=== PATIENT | male | born 1945 | race Caucasian/White ===

== ENCOUNTER → 2016-09-17 | Outpatient (REF) | payer MEDICARE, OTHER ==
[~2016-09-17] MED LIST: /BENA20TA; /WARF25TA; /WARF5TA; ACET65TA; ACTO45TA; ALLO300T; ATENPOW; BENA20TA2 PO; CARD2TAB; COUM10TA; DOXA1TAB71 PO; DRIS50002 PO; GLUC1000; INSULANT; LANTINJ4 SC; LASI20TA; LASI40TA; LASI40TA PO; LOTREL; POTA10TAB PO; PRAV80TA2 PO; TENO100T; TOPR200T PO; UROCIT-K; VITA10002 PO; VITA500T53 PO; VITAMIN B12; VITMTA PO; XARE20TA PO; ZOCO80TA; ZYLO300T4 PO; [UNRECOGNIZED DRUG - OTHER]
[2016-09-17 15:54] LABS: MEAN CORPUSCULAR HEMOGLOBIN 29.9 pg (27.0-33.0); MEAN CORPUSCULAR HGB CONC 30.6 g/dl (32.0-36.5); MEAN CORPUSCULAR VOLUME 97.8 fl (80.0-96.0); RED CELL DISTRIBUTION WIDTH 14.9 % (11.5-14.5)
[2016-09-17 16:13] LABS: ALBUMIN 3.3 GM/DL (3.2-5.2); ALBUMIN/GLOBULIN RATIO 0.94 (1.00-1.93); BILIRUBIN,TOTAL 0.7 MG/DL (0.2-1.0); CREATININE FOR GFR 1.47 MG/DL (0.70-1.30); GLOMERULAR FILTRATION RATE 50.3 (>42); POTASSIUM SERUM 4.6 MEQ/L (3.5-5.1); TOTAL PROTEIN 6.8 GM/DL (6.4-8.2); URIC ACID 4.8 MG/DL (3.5-7.2)
== END ==
LOC: M SFHCPLAZ 14:25
PROVIDERS: ATTEND Nurse Practitioner Adult Health
DX: I48.2 Chronic atrial fibrillation (principal); E11.21 Type 2 diabetes mellitus with diabetic nephropathy; M10.9 Gout, unspecified
CPT/HCPCS: 36415; 80053; 82043; 83036; 84550; 85027; G0463

== ENCOUNTER → 2016-11-19 | Outpatient (CLI) | payer MEDICARE, BC, OTHER ==
[~2016-11-19] MED LIST changes: +CARD2TAB PO; +ISOVUE-370 76% 100ML VIAL (Q9967) As Ordered ONE
--- NOTE | 2016-11-19 16:39 | REP ---
CAROTID ULTRASOUND: Real-time ultrasound evaluation and duplex Doppler interrogation of the extracranial carotid vasculature is performed. There is mild to moderate plaquing and narrowing in both carotid bulbs extending into the internal and external carotid arteries. Luminal narrowing is less than 50% in the right internal carotid artery. There is elevated peak systolic velocity in the left internal carotid artery compatible with stenosis 60-79%. The vertebral arteries demonstrate normal direction of flow. RIGHT LEFT Peak systolic velocity ICA 76.1 cm/s 178.9 cm/s End diastolic velocity ICA 19.4 cm/s 23.1 cm/s Peak systolic velocity CCA 61.8 cm/s 79.6 cm/s Peak systolic velocity ECA 290.6 cm/s 300.8 cm/s ICA/CCA ratio 1.2 2.2 IMPRESSION: There is stenosis of the left internal carotid artery 60-79%. Luminal narrowing right internal carotid artery less than 50%. Signed by Amadou Ferreira MD 11/19/2016 04:30 P
== END ==
LOC: M RAD 13:41
PROVIDERS: ATTEND Internal Medicine Cardiovascular Disease
DX: I65.22 Occlusion and stenosis of left carotid artery (principal)
CPT/HCPCS: 93880; Q9967

== ENCOUNTER → 2016-12-23 | Outpatient (REF) | payer MEDICARE, BC, OTHER ==
[~2016-12-23] MED LIST changes: -ISOVUE-370 76% 100ML VIAL (Q9967) As Ordered ONE
== END ==
LOC: M LAB REF 14:50
PROVIDERS: ATTEND Surgery
DX: C44.42 Squamous cell carcinoma of skin of scalp and neck (principal)

== ENCOUNTER → 2017-05-12 | Outpatient (CLI) | payer MEDICARE, BC, OTHER ==
[~2017-05-12] MED LIST changes: -BENA20TA2 PO; +BENA20TA8 PO
--- NOTE | 2017-05-12 17:03 | REP ---
Clinical: Diastolic heart failure. Technique: PA and lateral. Comparison: 11/04/2016. Findings: Small to moderate bilateral pleural effusions along with indistinct pulmonary vasculature, mild cephalization and interstitial prominence compatible with history of CHF. Mild cardiomegaly remains stable. No pneumothorax. Skeletal structures are intact. Impression: Findings described above consistent with CHF. Signed by Haim Lawson MD 05/12/2017 11:39 A
== END ==
LOC: M RAD 10:18 → M LAB 10:18
PROVIDERS: ATTEND Internal Medicine Cardiovascular Disease
DX: I50.32 Chronic diastolic (congestive) heart failure (principal)

== ENCOUNTER 2017-08-02 20:54 | Inpatient (IN) | payer MEDICARE, BC, OTHER ==
[~2017-08-02] VITALS: Ht 182.9 cm; Wt 83.6 kg
[2017-08-02] MEDS ORDERED: NS 1,000 ML IV SCH (21:31)
[2017-08-02] MEDS ORDERED: ASPIRIN 81 MG CHEW TABLET PO ONE (21:45)
[2017-08-02] MEDS ORDERED: IPRATROPIUM 0.5MG/ALBUTEROL 2.5MG INH SOL UD 3ML (DUONEB)(J7620) NEB PRN (21:45)
--- NOTE | 2017-08-02 22:12 | REP ---
Clinical: Chronic diastolic heart failure . Comparison: 05/12/2017 . Findings: The mediastinum and cardiac silhouette are stable. The lung francis demonstrate chronic stable changes without acute consolidation, effusion, or pneumothorax. Skeletal structures are intact. Impression: No acute cardiopulmonary process appreciated. Signed by Haim Lawson MD 08/02/2017 10:04 P
[2017-08-02 22:25] LABS: BASO % 0.1 % (0.0-1.0); EOS # 0.1 10^3/uL (0.0-0.50); EOS % 0.8 % (0.0-3.0); IMMATURE GRANULOCYTE % 0.6 % (0-0); LYMPH # 0.7 10^3/uL (1.5-4.5); LYMPH % 7.3 % (24.0-44.0); MEAN CORPUSCULAR HEMOGLOBIN 29.7 pg (27.0-33.0); MEAN CORPUSCULAR HGB CONC 31.8 g/dl (32.0-36.5); MEAN CORPUSCULAR VOLUME 93.6 fl (80.0-96.0); MONO # 1.1 10^3/uL (0.0-0.8); MONO % 10.7 % (0.0-5.0); NEUTROPHILS % 80.5 % (36.0-66.0); PLATELET COUNT, AUTOMATED 280 10^3/uL (150-450); RED CELL DISTRIBUTION WIDTH 14.5 % (11.5-14.5); VENOUS BASE EXCESS 7.2 (-2.0-2.0); VENOUS O2 SATURATION 46.7 % (60.0-80.0); VENOUS PARTIAL PRESSURE CO2 58.7 mmHg (38.0-50.0); VENOUS PARTIAL PRESSURE O2 25.6 mmHg (30.0-50.0); VENOUS STANDARD HCO3 29.5 MEQ/L; VENOUS TOTAL CO2 36.2 MEQ/L (24.0-28.0); WHITE BLOOD COUNT 9.9 10^3/uL (4.0-10.0)
[2017-08-02 22:42] LABS: ALBUMIN 2.9 GM/DL (3.2-5.2); ALBUMIN/GLOBULIN RATIO 0.67 (1.00-1.93); BILIRUBIN,DIRECT 0.4 MG/DL (0.0-0.2); BILIRUBIN,TOTAL 1.1 MG/DL (0.2-1.0); CALCIUM LEVEL 8.8 MG/DL (8.8-10.2); CREATININE FOR GFR 2.03 MG/DL (0.70-1.30); GLOMERULAR FILTRATION RATE 34.6 (>42); POTASSIUM SERUM 4.2 MEQ/L (3.5-5.1); TOTAL PROTEIN 7.2 GM/DL (6.4-8.2)
[2017-08-02 22:50] LABS: INR 2.52
[2017-08-02] MEDS ORDERED: LABETALOL HCL 100 MG/20 ML VIAL IV STA (23:40)
--- NOTE | 2017-08-02 23:40 | REPUSA ---
CT of the chest without contrast Clinical statement: Shortness of breath. Technique: Multiple axial CT images were obtained with 5 mm cuts through the chest without administra tion of contrast. Comparison: 11/04/2016. Findings: There is no thoracic lymphadenopathy. The visualized portions of the thyroid gland is unrem arkable. There are no pericardial or pleural effusions. There is extensive emphysematous changes in t he lungs, predominant in the upper lobes. There is a focal left lower lobe infiltrate. Limited imagin g of the upper abdomen demonstrates numerous gallstones and gallbladder. There are no suspicious osse ous lesions. Exaggerated kyphosis of the thoracic spine noted. Impression: 1. Acute left lower lobe infiltrate consistent with pneumonia. 2. Moderate emphysema. 3. Cholelithiasis without evidence of acute cholecystitis.
[2017-08-03] MEDS ORDERED: AZITHROMYCIN INJ 500 MG, VIAL MATE ADAPTER 1 EACH in D5W 250 ML IV ONE ×3
[2017-08-03] MEDS ORDERED: CEFTRIAXONE SOD 1 GM in APPROPRIATE DILUENT 1 EA IV ONE ×2
[2017-08-03] MEDS ORDERED: TORS20TA2 PO (00:21)
[2017-08-03] MEDS ORDERED: hydrALAZINE INJ 20 MG/ML VIAL IV STA ×2 (01:01→02:01)
[2017-08-03] MEDS ORDERED: amLODIPine 5 MG TAB PO ONE (01:15)
[2017-08-03] MEDS ORDERED: ALBUTEROL SULFATE 2.5 MG/0.5 ML INH NEB SOLN INH PRN (02:15)
[2017-08-03] MEDS ORDERED: ACETAMINOPHEN TAB 650MG DOSE (2X325MG) PO PRN (02:15)
[2017-08-03] MEDS ORDERED: ONDANSETRON 4MG/2ML VIAL (J2405) IV PRN (02:15)
--- NOTE | 2017-08-03 02:18 | HPEPDOC ---
[facility] Medical History & Physical Date of Admission Aug 03, 2017 History and Physical PRIMARY CARE PROVIDER: Dr. Rohit Dnulap ATTENDING: Dr. Sammy Cerna CHIEF COMPLAINT: Short of breath HISTORY OF PRESENT ILLNESS: This is a 71-year-old male past medical history of atrial fibrillation on Xarelto, CAD, diastolic heart failure, diabetes, nephrolithiasis, hyperlipidemia , gout, B12 deficiency, lower extremity venous stasis, COPD, CKD stage III who presents complaining of shortness of breath and cough. Patient states he's been complaining of shortness of breath and cough since [place]. He's had a nonproductive cough and has been increasingly dyspneic over the past week. Patient denies chest pain/palpitations. No syncopal episodes. Patient presents to the ED was found to be hypoxic in the ED requiring 2 L nasal cannula. The patient was noted to have pneumonia on CT chest. Of note, patient recently had resection of skin cancer on the scalp 3 weeks ago in [place] which was done outpatient. PAST MEDICAL HISTORY: As per HPI PAST SURGICAL HISTORY: Resection of skin cancer on scalp 3 weeks ago, appendectomy, laminectomy SOCIAL HISTORY: History of tobacco abuse however quit 25 years ago. Denies alcohol or illicit drug use. Lives with . FAMILY HISTORY: Noncontributory ALLERGIES: Please see below. REVIEW OF SYSTEMS: HEENT: Denies sore throat/headache CARDIOVASCULAR: Denies chest pain/palpitations RESPIRATORY: + shortness of breath/cough GASTROINTESTINAL: denies nausea/vomiting GENITOURINARY: Denies dysuria/urinary urgency. MUSCULOSKELETAL: Denies myalgias/arthralgias NEUROLOGICAL: Denies any focal weakness HOME MEDICATIONS: Please see below. PHYSICAL EXAMINATION: Vitals: (see below) General: No acute distress, laying comfortably in bed. HEENT: Moist mucous membranes. Neck: No JVD or lymphadenopathy Cardiac: RRR, No murmurs Pulm: Coarse crackles bilaterally left greater than right b/l. No wheezing, rhonchi Abd: NT/ND + BS Ext: No edema or cyanosis. Chronic skin changes bilateral lower extremities. Distal pulses intact. LABORATORY DATA: See below. IMAGING: CT chest on 08/02/17 Impression: 1. Acute left lower lobe infiltrate consistent with pneumonia. 2. Moderate emphysema. 3. Cholelithiasis without evidence of acute cholecystitis. MICROBIOLOGY: Please see below. ASSESSMENT/PLAN: 1. Hypoxemia secondary to community-acquired pneumonia. Azithromycin/Rocephin in the ED. Started on Levaquin daily. Blood/sputum culture. Urine strep/ Legionella sent. Continue O2 nasal cannula. Nebulizers. Mucinex. Incentive spirometer. 2. History of COPD with emphysematous changes on CAT scan. History of tobacco abuse. Continue nebs. 3. Acute kidney injury likely secondary to decreased by mouth intake as well as JULIO inhibitor/diuretics. History of CKD. We'll hold JULIO inhibitor for now. IV fluids. Avoid nephrotoxins. Renal ultrasound. Urinalysis/urine sodium/creatinine /urea 4. Diabetes mellitus- sliding scale insulin 5. History of diastolic heart failure- compensated. Hold diuretics for now. Consider restarting when patient's renal function and fluid status improves. 6. History of nephrolithiasis 7. History of atrial fibrillation on Xarelto 8. HTN - uncontrolled. IV hydralazine prn. Started on amlodipine. Hold JULIO for now. Due to prophylaxis on Xarelto Patient will be followed by Dr. Sammy Cerna starting 08/03/17 at 7am. Vital Signs Vital Signs Date Time Temp Pulse Resp B/P (MAP) Pulse Ox O2 Delivery O2 Flow Rate FiO2 08/03/17 01:59 81 16 184/88 (120) 98 08/02/17 20:55 97.5 Room Air Laboratory Data Labs 24H Laboratory Tests 2 08/02/17 21:24: Immature Granulocyte % (Auto) 0.6H, White Blood Count 9.9, Red Blood Count 4.98 , Hemoglobin 14.8, Hematocrit 46.6, Mean Corpuscular Volume 93.6, Mean Corpuscular Hemoglobin 29.7, Mean Corpuscular Hemoglobin Concent 31.8L, Red Cell Distribution Width 14.5, Platelet Count 280, Neutrophils (%) (Auto) 80.5H, Lymphocytes (%) (Auto) 7.3L, Monocytes (%) (Auto) 10.7H, Eosinophils (%) (Auto) 0.8, Basophils (%) (Auto) 0.1, Neutrophils # (Auto) 8.0H, Lymphocytes # (Auto) 0.7L, Monocytes # (Auto) 1.1H, Eosinophils # (Auto) 0.1, Basophils # (Auto) 0.0 , Immature Granulocyte # (Auto) 0.1H, Nucleated Red Blood Cells % (auto) 0.0, Blood Gas Bicarbonate Standard 29.5, Venous Blood pH 7.386, Venous Blood Partial Pressure CO2 58.7H, Venous Blood Partial Pressure O2 25.6L, Venous Blood Total Carbon Dioxide 36.2H, Venous Blood HCO3 34.4H, Venous Blood Oxygen Saturation 46.7L, Venous Blood Base Excess 7.2H, Anion Gap 7L, Glomerular Filtration Rate 34.6L, Lactic Acid Level 1.9, Calcium Level 8.8, Aspartate Amino Transf (AST/SGOT) 24, Alanine Aminotransferase (ALT/SGPT) 19, Alkaline Phosphatase 136H, Total Bilirubin 1.1H, Direct Bilirubin 0.4H, Total Creatine Kinase 39, Creatine Kinase MB 1.8, Creatine Kinase MB Relative Index 4.61H, Troponin I 0.02, Total Protein 7.2, Albumin 2.9L, Albumin/Globulin Ratio 0.67L 08/02/17 22:33: Prothrombin Time 28.2H, Prothromb Time International Ratio 2.52 CBC/BMP Laboratory Tests 08/02/17 21:24 Red Blood Count 4.98, Mean Corpuscular Volume 93.6, Mean Corpuscular Hemoglobin 29.7, Mean Corpuscular Hemoglobin Concent 31.8 L, Red Cell Distribution Width 14.5, Neutrophils (%) (Auto) 80.5 H, Lymphocytes (%) (Auto) 7.3 L, Monocytes (% ) (Auto) 10.7 H, Eosinophils (%) (Auto) 0.8, Basophils (%) (Auto) 0.1, Neutrophils # (Auto) 8.0 H, Lymphocytes # (Auto) 0.7 L, Monocytes # (Auto) 1.1 H , Eosinophils # (Auto) 0.1, Basophils # (Auto) 0.0 Microbiology Microbiology 08/02/17 Blood Culture, Received Pending 08/02/17 Blood Culture, Received Pending Home Medications Scheduled Allopurinol (Zyloprim) 300 Mg Tab, 300 MG PO QPM Benazepril HCl (Benazepril HCl) 20 Mg Tab, 20 MG PO QHS Cyanocobalamin (Vitamin B12) 500 Mcg Tab, 1,000 MCG PO 3XW THURSDAY, THURSDAY, THURSDAY Doxazosin Mesylate (Doxazosin) 2 Mg Tab, 2 MG PO QHS Insulin Glargine (Lantus Solostar) 100 Unit/Ml Inj, 25 UNITS SC QHS Metoprolol Succinate (Toprol Xl) 200 Mg Tab, 200 MG PO DAILY Potassium Citrate (Potassium Citrate 10MEQ (Urocit-K)) 1,080 Mg Tab, 1,080 MG PO BID Pravastatin Sodium (Pravastatin Sodium) 80 Mg Tab, 80 MG PO QHS Rivaroxaban (Xarelto) 20 Mg Tab, 20 MG PO DAILY Torsemide (Torsemide) 20 Mg Tab, 40 MG PO BID Vitamin D (Drisdol) 50,000 Unit Cap, 50,000 UNIT PO QWEEK THURSDAY Allergies Coded Allergies: Quinine (Verified Allergy, Unknown, [facility], 11/04/16) NEREIDA DAVIES MD Aug 03, 2017 02:18
[2017-08-03] MEDS: IPRATROPIUM 0.5MG/ALBUTEROL 2.5MG INH SOL UD 3ML (DUONEB)(J7620) NEB SCH ×5 (04:00→19:06)
[2017-08-03] MEDS ORDERED: NS 1,000 ML IV SCH (07:00)
[2017-08-03 07:59] LABS: BASO % 0.3 % (0.0-1.0); EOS # 0.1 10^3/uL (0.0-0.50); EOS % 1.5 % (0.0-3.0); IMMATURE GRANULOCYTE % 0.8 % (0-0); LYMPH # 0.7 10^3/uL (1.5-4.5); LYMPH % 9.7 % (24.0-44.0); MEAN CORPUSCULAR HEMOGLOBIN 29.7 pg (27.0-33.0); MEAN CORPUSCULAR HGB CONC 31.7 g/dl (32.0-36.5); MEAN CORPUSCULAR VOLUME 93.9 fl (80.0-96.0); MONO # 0.9 10^3/uL (0.0-0.8); MONO % 12.4 % (0.0-5.0); NEUTROPHILS # 5.6 10^3/uL (1.8-7.7); NEUTROPHILS % 75.3 % (36.0-66.0); PLATELET COUNT, AUTOMATED 253 10^3/uL (150-450); RED CELL DISTRIBUTION WIDTH 14.3 % (11.5-14.5); WHITE BLOOD COUNT 7.4 10^3/uL (4.0-10.0)
[2017-08-03 08:06] VITALS: BP 129/66
[2017-08-03 08:14] LABS: ALBUMIN 2.6 GM/DL (3.2-5.2); ALBUMIN/GLOBULIN RATIO 0.55 (1.00-1.93); CALCIUM LEVEL 8.6 MG/DL (8.8-10.2); CREATININE FOR GFR 1.67 MG/DL (0.70-1.30); GLOMERULAR FILTRATION RATE 43.4 (>42); MAGNESIUM LEVEL 2.2 MG/DL (1.8-2.4); TOTAL PROTEIN 7.3 GM/DL (6.4-8.2)
--- NOTE | 2017-08-03 09:04 | REP ---
Renal ultrasound: The kidneys are normal size. The right kidney measures 12.8 x 5.9 x 7.1 cm. The left kidney measures 13.3 x 3.9 x 5.9 cm. There is no hydronephrosis on the right or left. There is mild distension of the right and left renal pelves, possibly secondary to the bladder distension. I suspect there are a few small nonobstructive right renal calculi. There is a calculus in the left renal pelvis. This could be a confluence of multiple calculi or possibly a staghorn calculus. There is a 3.6 cm left renal cyst laterally at the lower pole. The bladder is diffusely distended. No bladder wall masses or polyps are identified. Impression: Left renal calculi, possibly a staghorn calculus. Possible small right renal calculi. Mild distension of the right and left renal pelves, possibly secondary to the bladder distension. Signed by Amadou Dejesus MD 08/03/2017 08:55 A
--- NOTE | 2017-08-03 09:32 | ECGEPIP ---
Stationary ECG Study [facility] - ED Test Date: 2017-08-02 Pat Name: KRISTINE HUFFMAN Department: Room: [place] [address] Gender: M Can Doffer: CrowellB: 1945 Requested By: ROXANNA MURPHY Order Number: [id number] Reading MD: Binh Phillips Measurements Intervals [place] Rate: 87 P: KS: 0 QRS: -16 QRSD: 97 T: 30 QT: 387 QTc: 466 Interpretive Statements ATRIAL FIBRILLATION INFERIOR MYOCARDIAL INFARCTION, PROBABLY OLD POOR R WAVE PROGRESSION SIMILAR TO 11/06/15 Electronically Signed On 08-03-2017 9:31:42 EST by Binh Phillips
[2017-08-03] MEDS: RIVAROXABAN 20 MG TAB (XARELTO) PO SCH (09:37)
[2017-08-03] MEDS: guaiFENesin ER 600 MG TAB PO SCH ×2 (09:38→23:15)
[2017-08-03] MEDS: amLODIPine 5 MG TAB PO SCH (09:38)
[2017-08-03] MEDS: METOPROLOL SUCC (TopROL XL) 100MG *XL* TAB PO SCH (09:38)
[2017-08-03 11:53] VITALS: BP 117/62
--- NOTE | 2017-08-03 11:57 | IPNPDOC ---
Subjective Date Seen The patient was seen on 08/03/17. Subjective Chief Complaint/HPI The patient is a 71-year-old male admitted with a reason for visit of Hypoxemia , Pneumonia. No acute complaints, resting in bed comfortably. States NC O2 alleviated symptoms. Denied recent travel, sick contacts, or changes in meds. Constitutional: Denies: Chills, Fever ENT: Denies: Head Aches Pulmonary: Denies: Dyspnea, Cough Cardiovascular: Denies: Chest Pain, Palpitations, Edema, Lt Headedness Gastrointestinal: Denies: Nausea, Vomiting, Abdominal Pain Neurological: Denies: Weakness, Numbness Objective Physical Examination General Exam: Positive: Alert, Cooperative, No Acute Distress Eye Exam: Positive: EOMI ENT Exam: Positive: Atraumatic Chest Exam: Positive: Rales (left lung base) Heart Exam: Positive: Rate Normal, Regular Rhythm, Normal S1, Normal S2, Other (distant heart sounds) Abdomen Exam: Positive: Normal bowel sounds, Soft, Negative: Tenderness Extremity Exam: Negative: Cyanosis, Edema, Tenderness Neuro Exam: Positive: Normal Tone, Sensation Intact Psych Exam: Positive: Mood NL (flat affect), Oriented x 3 Assessment /Plan Assessment Hypoxia 2/2 community-acquired pneumonia continue Levaquin blood & sputum cultures pending Urine strep/Legionella sent continue O2 NC, nebs, incentive spirometer Hx of COPD not on O2 at home emphysematous changes on CT hx tobacco abuse. Continue nebs. Acute on chronic kidney injury likely 2/2 decreased po intake and nephrotoxic drugs hold ACEi, avoid nephrotoxins IV fluids renal ultrasound pending Urinalysis/urine sodium/creatinine/urea Diabetes mellitus, insulin dependent ISS Hx diastolic CHF compensated hold diuretics due to RAVINDRA. Consider restarting when renal function and fluid status improve History of atrial fibrillation on Xarelto rate controlled HTN uncontrolled. Started on amlodipine. Hold ACEi due to RAVINDRA HLD continue statin Gout hold home allopurinol due to RAVINDRA DVT ppx: on Xarelto Plan/VTE VTE Prophylaxis Ordered?: Yes VS, I&O, 24H, Fishbone Vital Signs/I&O Vital Signs Date Time Temp Pulse Resp B/P (MAP) Pulse Ox O2 Delivery O2 Flow Rate FiO2 08/03/17 08:06 98.3 87 18 129/66 (87) 96 Nasal Cannula 2.0 I&O- Last 24 Hours up to 6 AM 08/04/17 06:00 Intake Total 240 ml Output Total 250 ml Balance -10 ml Laboratory Data 24H LABS Laboratory Tests 2 08/02/17 21:24: Immature Granulocyte % (Auto) 0.6H, White Blood Count 9.9, Red Blood Count 4.98 , Hemoglobin 14.8, Hematocrit 46.6, Mean Corpuscular Volume 93.6, Mean Corpuscular Hemoglobin 29.7, Mean Corpuscular Hemoglobin Concent 31.8L, Red Cell Distribution Width 14.5, Platelet Count 280, Neutrophils (%) (Auto) 80.5H, Lymphocytes (%) (Auto) 7.3L, Monocytes (%) (Auto) 10.7H, Eosinophils (%) (Auto) 0.8, Basophils (%) (Auto) 0.1, Neutrophils # (Auto) 8.0H, Lymphocytes # (Auto) 0.7L, Monocytes # (Auto) 1.1H, Eosinophils # (Auto) 0.1, Basophils # (Auto) 0.0 , Immature Granulocyte # (Auto) 0.1H, Nucleated Red Blood Cells % (auto) 0.0, Blood Gas Bicarbonate Standard 29.5, Venous Blood pH 7.386, Venous Blood Partial Pressure CO2 58.7H, Venous Blood Partial Pressure O2 25.6L, Venous Blood Total Carbon Dioxide 36.2H, Venous Blood HCO3 34.4H, Venous Blood Oxygen Saturation 46.7L, Venous Blood Base Excess 7.2H, Anion Gap 7L, Glomerular Filtration Rate 34.6L, Lactic Acid Level 1.9, Calcium Level 8.8, Aspartate Amino Transf (AST/SGOT) 24, Alanine Aminotransferase (ALT/SGPT) 19, Alkaline Phosphatase 136H, Total Bilirubin 1.1H, Direct Bilirubin 0.4H, Total Creatine Kinase 39, Creatine Kinase MB 1.8, Creatine Kinase MB Relative Index 4.61H, Troponin I 0.02, Total Protein 7.2, Albumin 2.9L, Albumin/Globulin Ratio 0.67L 08/02/17 22:33: Prothrombin Time 28.2H, Prothromb Time International Ratio 2.52 08/03/17 06:52: Immature Granulocyte % (Auto) 0.8H, White Blood Count 7.4, Red Blood Count 4.74 , Hemoglobin 14.1, Hematocrit 44.5, Mean Corpuscular Volume 93.9, Mean Corpuscular Hemoglobin 29.7, Mean Corpuscular Hemoglobin Concent 31.7L, Red Cell Distribution Width 14.3, Platelet Count 253, Neutrophils (%) (Auto) 75.3H, Lymphocytes (%) (Auto) 9.7L, Monocytes (%) (Auto) 12.4H, Eosinophils (%) (Auto) 1.5, Basophils (%) (Auto) 0.3, Neutrophils # (Auto) 5.6, Lymphocytes # (Auto) 0.7L, Monocytes # (Auto) 0.9H, Eosinophils # (Auto) 0.1, Basophils # (Auto) 0.0 , Immature Granulocyte # (Auto) 0.1H, Nucleated Red Blood Cells % (auto) 0.0, Anion Gap 7L, Glomerular Filtration Rate 43.4, Calcium Level 8.6L, Aspartate Amino Transf (AST/SGOT) 24, Alanine Aminotransferase (ALT/SGPT) 17, Alkaline Phosphatase 111, Total Bilirubin 1.0, Total Protein 7.3, Albumin 2.6L, Albumin/ Globulin Ratio 0.55L, Blood Urea Nitrogen 68H, Creatinine 1.67H, Sodium Level 140, Potassium Level 4.0, Chloride Level 100, Carbon Dioxide Level 33H, Magnesium Level 2.2 CBC/BMP Laboratory Tests 08/02/17 21:24 Red Blood Count 4.98, Mean Corpuscular Volume 93.6, Mean Corpuscular Hemoglobin 29.7, Mean Corpuscular Hemoglobin Concent 31.8 L, Red Cell Distribution Width 14.5, Neutrophils (%) (Auto) 80.5 H, Lymphocytes (%) (Auto) 7.3 L, Monocytes (% ) (Auto) 10.7 H, Eosinophils (%) (Auto) 0.8, Basophils (%) (Auto) 0.1, Neutrophils # (Auto) 8.0 H, Lymphocytes # (Auto) 0.7 L, Monocytes # (Auto) 1.1 H , Eosinophils # (Auto) 0.1, Basophils # (Auto) 0.0 08/03/17 06:52 Red Blood Count 4.74, Mean Corpuscular Volume 93.9, Mean Corpuscular Hemoglobin 29.7, Mean Corpuscular Hemoglobin Concent 31.7 L, Red Cell Distribution Width 14.3, Neutrophils (%) (Auto) 75.3 H, Lymphocytes (%) (Auto) 9.7 L, Monocytes (% ) (Auto) 12.4 H, Eosinophils (%) (Auto) 1.5, Basophils (%) (Auto) 0.3, Neutrophils # (Auto) 5.6, Lymphocytes # (Auto) 0.7 L, Monocytes # (Auto) 0.9 H, Eosinophils # (Auto) 0.1, Basophils # (Auto) 0.0, Calcium Level 8.6 L, Aspartate Amino Transf (AST/SGOT) 24, Alanine Aminotransferase (ALT/SGPT) 17, Alkaline Phosphatase 111, Total Bilirubin 1.0, Total Protein 7.3, Albumin 2.6 L Microbiology Microbiology 08/02/17 Blood Culture, Received Pending 08/02/17 Blood Culture, Received Pending GME ATTESTATION GME ATTESTATION My faculty preceptor for this patient encounter was physically present during the encounter and was fully available. All aspects of the patient interview, examination, medical decision making process, and medical care plan development were reviewed and approved by the faculty preceptor. The faculty preceptor is aware and concurs with the plan as stated in the body of this note and will attest to such by his/her cosignature. JOSE GARNER DO Aug 03, 2017 09:44
[2017-08-03 16:33] VITALS: BP 121/61
[2017-08-03] MEDS ORDERED: LevoFLOXacin IV 500 MG in APPROPRIATE DILUENT 1 EA IV ONE (17:00)
[2017-08-03 23:07] VITALS: BP 136/82
[2017-08-03] MEDS: PRAVASTATIN 20 MG TAB PO SCH (23:14)
[2017-08-03] MEDS: LEVEMIR (INSULIN DETEMIR) 1 UNITS/0.01ML SC SCH (23:15)
[2017-08-04] MEDS: IPRATROPIUM 0.5MG/ALBUTEROL 2.5MG INH SOL UD 3ML (DUONEB)(J7620) NEB SCH ×7 (00:32→23:37)
[2017-08-04 02:00] VITALS: BP 133/73
[2017-08-04 06:00] VITALS: BP 144/83
[2017-08-04 06:20] LABS: BASO % 0.2 % (0.0-1.0); EOS # 0.2 10^3/uL (0.0-0.50); EOS % 1.8 % (0.0-3.0); IMMATURE GRANULOCYTE % 0.7 % (0-0); LYMPH # 0.4 10^3/uL (1.5-4.5); MEAN CORPUSCULAR HEMOGLOBIN 29.7 pg (27.0-33.0); MEAN CORPUSCULAR HGB CONC 31.6 g/dl (32.0-36.5); MEAN CORPUSCULAR VOLUME 94.1 fl (80.0-96.0); MONO % 11.8 % (0.0-5.0); NEUTROPHILS # 7.1 10^3/uL (1.8-7.7); NEUTROPHILS % 80.5 % (36.0-66.0); PLATELET COUNT, AUTOMATED 229 10^3/uL (150-450); RED CELL DISTRIBUTION WIDTH 14.3 % (11.5-14.5); WHITE BLOOD COUNT 8.8 10^3/uL (4.0-10.0)
[2017-08-04 06:55] LABS: ALBUMIN 2.4 GM/DL (3.2-5.2); ALBUMIN/GLOBULIN RATIO 0.55 (1.00-1.93); BILIRUBIN,TOTAL 0.9 MG/DL (0.2-1.0); CREATININE FOR GFR 1.43 MG/DL (0.70-1.30); GLOMERULAR FILTRATION RATE 51.9 (>42); MAGNESIUM LEVEL 2.7 MG/DL (1.8-2.4); POTASSIUM SERUM 4.1 MEQ/L (3.5-5.1); TOTAL PROTEIN 6.8 GM/DL (6.4-8.2)
[2017-08-04] MEDS: guaiFENesin ER 600 MG TAB PO SCH ×2 (08:24→22:23)
[2017-08-04] MEDS: METOPROLOL SUCC (TopROL XL) 100MG *XL* TAB PO SCH (08:24)
[2017-08-04] MEDS: amLODIPine 5 MG TAB PO SCH (08:24)
[2017-08-04] MEDS: RIVAROXABAN 20 MG TAB (XARELTO) PO SCH (08:24)
[2017-08-04 10:00] VITALS: BP 120/38
--- NOTE | 2017-08-04 11:48 | IPNPDOC ---
Subjective Date Seen The patient was seen on 08/04/17. Subjective Chief Complaint/HPI The patient is a 71-year-old male admitted with a reason for visit of Hypoxemia , Pneumonia. Feeling better and no acute complaints, but still requiring NC O2. Constitutional: Denies: Chills, Fever Eyes: Denies: Pain ENT: Denies: Head Aches, Dysphagia Pulmonary: Reports: Dyspnea, Denies: Cough Cardiovascular: Denies: Chest Pain, Palpitations, Edema, Lt Headedness Gastrointestinal: Denies: Nausea, Vomiting, Abdominal Pain Genitourinary: Denies: Dysuria Neurological: Denies: Weakness, Numbness Psych: Reports: Mood Normal Objective Physical Examination General Exam: Positive: Alert, Cooperative, No Acute Distress Eye Exam: Positive: EOMI ENT Exam: Positive: Atraumatic Chest Exam: Positive: Rales (left lung base) Heart Exam: Positive: Rate Normal, Regular Rhythm, Normal S1, Normal S2, Other (distant heart sounds) Abdomen Exam: Positive: Normal bowel sounds, Soft, Negative: Tenderness Extremity Exam: Negative: Cyanosis, Edema, Tenderness Neuro Exam: Positive: Normal Tone, Sensation Intact Psych Exam: Positive: Mood NL (flat affect), Oriented x 3 Assessment /Plan Assessment Acute hypoxic respiratory failure 2/2 community-acquired pneumonia pt feeling better, but wheezing & coughing persists, and still O2-dependant inpatient. Wears no O2 at home continue Levaquin, Day 2, switched from IV to PO blood cultures negative 24 hours Urine strep & Legionella, sputum culture pending continue O2 NC, nebs, incentive spirometer Hx of COPD not on O2 at home emphysematous changes on CT hx tobacco abuse. Continue nebs. Acute on chronic kidney injury normalized ~baseline Cr today. Stop IV fluids likely was 2/2 decreased po intake and nephrotoxic drugs continue holding ACEi, avoid nephrotoxins renal ultrasound non-concerning Urinalysis/urine sodium/creatinine/urea pending Diabetes mellitus, insulin dependent ISS Hx diastolic CHF compensated hold diuretics due to RAVINDRA. Consider restarting when renal function and fluid status improve History of atrial fibrillation on Xarelto rate controlled HTN uncontrolled. Started on amlodipine. Hold ACEi due to RAVINDRA HLD continue statin Gout hold home allopurinol due to RAVINDRA DVT ppx: on Xarelto Plan/VTE VTE Prophylaxis Ordered?: Yes VS, I&O, 24H, Fishbone Vital Signs/I&O Vital Signs Date Time Temp Pulse Resp B/P (MAP) Pulse Ox O2 Delivery O2 Flow Rate FiO2 08/04/17 10:00 98.8 91 18 120/38 (65) 94 Nasal Cannula 2.0 I&O- Last 24 Hours up to 6 AM 08/05/17 06:00 Intake Total 240 ml Output Total 400 ml Balance -160 ml Laboratory Data 24H LABS Laboratory Tests 2 08/04/17 05:54: Immature Granulocyte % (Auto) 0.7H, White Blood Count 8.8, Red Blood Count 4.44 , Hemoglobin 13.2L, Hematocrit 41.8L, Mean Corpuscular Volume 94.1, Mean Corpuscular Hemoglobin 29.7, Mean Corpuscular Hemoglobin Concent 31.6L, Red Cell Distribution Width 14.3, Platelet Count 229, Neutrophils (%) (Auto) 80.5H, Lymphocytes (%) (Auto) 5.0L, Monocytes (%) (Auto) 11.8H, Eosinophils (%) (Auto) 1.8, Basophils (%) (Auto) 0.2, Neutrophils # (Auto) 7.1, Lymphocytes # (Auto) 0.4L, Monocytes # (Auto) 1.0H, Eosinophils # (Auto) 0.2, Basophils # (Auto) 0.0 , Immature Granulocyte # (Auto) 0.1H, Nucleated Red Blood Cells % (auto) 0.0, Anion Gap 2L, Glomerular Filtration Rate 51.9, Blood Urea Nitrogen 61H, Creatinine 1.43H, Sodium Level 141, Potassium Level 4.1, Chloride Level 102, Carbon Dioxide Level 37H, Calcium Level 9.0, Aspartate Amino Transf (AST/SGOT) 21, Alanine Aminotransferase (ALT/SGPT) 16, Alkaline Phosphatase 106, Total Bilirubin 0.9, Total Protein 6.8, Albumin 2.4L, Magnesium Level 2.7H, Albumin/ Globulin Ratio 0.55L CBC/BMP Laboratory Tests 08/04/17 05:54 Red Blood Count 4.44, Mean Corpuscular Volume 94.1, Mean Corpuscular Hemoglobin 29.7, Mean Corpuscular Hemoglobin Concent 31.6 L, Red Cell Distribution Width 14.3, Neutrophils (%) (Auto) 80.5 H, Lymphocytes (%) (Auto) 5.0 L, Monocytes (% ) (Auto) 11.8 H, Eosinophils (%) (Auto) 1.8, Basophils (%) (Auto) 0.2, Neutrophils # (Auto) 7.1, Lymphocytes # (Auto) 0.4 L, Monocytes # (Auto) 1.0 H, Eosinophils # (Auto) 0.2, Basophils # (Auto) 0.0, Calcium Level 9.0, Aspartate Amino Transf (AST/SGOT) 21, Alanine Aminotransferase (ALT/SGPT) 16, Alkaline Phosphatase 106, Total Bilirubin 0.9, Total Protein 6.8, Albumin 2.4 L Microbiology Microbiology 08/02/17 Blood Culture - Preliminary, Resulted No growth after 24 hours . All specim... 08/02/17 Blood Culture - Preliminary, Resulted No growth after 24 hours . All specim... GME ATTESTATION GME ATTESTATION My faculty preceptor for this patient encounter was physically present during the encounter and was fully available. All aspects of the patient interview, examination, medical decision making process, and medical care plan development were reviewed and approved by the faculty preceptor. The faculty preceptor is aware and concurs with the plan as stated in the body of this note and will attest to such by his/her cosignature. JOSE GARNER DO Aug 04, 2017 11:48
[2017-08-04 14:00] VITALS: BP 126/67
[2017-08-04] MEDS ORDERED: LevoFLOXacin IV 250 MG in APPROPRIATE DILUENT 1 EA IV SCH (17:00)
[2017-08-04 18:00] VITALS: BP 129/70
[2017-08-04] MEDS: LevoFLOXacin 500 MG TABLET PO SCH (18:13)
[2017-08-04] MEDS: LEVEMIR (INSULIN DETEMIR) 1 UNITS/0.01ML SC SCH (21:00)
[2017-08-04 22:00] VITALS: BP 142/72
[2017-08-04] MEDS: PRAVASTATIN 20 MG TAB PO SCH (22:23)
[2017-08-05 02:00] VITALS: BP 139/74
[2017-08-05] MEDS: IPRATROPIUM 0.5MG/ALBUTEROL 2.5MG INH SOL UD 3ML (DUONEB)(J7620) NEB SCH ×3 (03:13→11:38)
[2017-08-05 06:00] VITALS: BP 130/72
[2017-08-05 06:35] LABS: BASO % 0.2 % (0.0-1.0); EOS # 0.2 10^3/uL (0.0-0.50); EOS % 2.6 % (0.0-3.0); IMMATURE GRANULOCYTE % 0.7 % (0-0); LYMPH # 0.6 10^3/uL (1.5-4.5); LYMPH % 6.7 % (24.0-44.0); MEAN CORPUSCULAR HEMOGLOBIN 29.9 pg (27.0-33.0); MEAN CORPUSCULAR HGB CONC 32.1 g/dl (32.0-36.5); MONO # 1.2 10^3/uL (0.0-0.8); MONO % 13.1 % (0.0-5.0); NEUTROPHILS % 76.7 % (36.0-66.0); PLATELET COUNT, AUTOMATED 246 10^3/uL (150-450); RED CELL DISTRIBUTION WIDTH 14.3 % (11.5-14.5); WHITE BLOOD COUNT 9.1 10^3/uL (4.0-10.0)
[2017-08-05 06:56] LABS: CALCIUM LEVEL 8.4 MG/DL (8.8-10.2); CREATININE FOR GFR 1.43 MG/DL (0.70-1.30); GLOMERULAR FILTRATION RATE 51.9 (>42); POTASSIUM SERUM 4.2 MEQ/L (3.5-5.1)
[2017-08-05 06:57] LABS: ALBUMIN 2.2 GM/DL (3.2-5.2); ALBUMIN/GLOBULIN RATIO 0.51 (1.00-1.93); BILIRUBIN,TOTAL 0.9 MG/DL (0.2-1.0); MAGNESIUM LEVEL 2.4 MG/DL (1.8-2.4); TOTAL PROTEIN 6.5 GM/DL (6.4-8.2)
[2017-08-05 09:03] VITALS: BP 137/64
[2017-08-05 09:42] VITALS: BP 137/64
[2017-08-05] MEDS: METOPROLOL SUCC (TopROL XL) 100MG *XL* TAB PO SCH (09:42)
[2017-08-05] MEDS: amLODIPine 5 MG TAB PO SCH (09:43)
[2017-08-05] MEDS: RIVAROXABAN 20 MG TAB (XARELTO) PO SCH (09:43)
[2017-08-05] MEDS: guaiFENesin ER 600 MG TAB PO SCH (09:43)
[2017-08-05 10:00] VITALS: BP 149/78
[2017-08-05] MEDS ORDERED: LEVA1TAB2 PO (13:09)
[2017-08-05] MEDS ORDERED: PRED20TA PO (13:09)
[2017-08-05] MEDS ORDERED: predniSONE 20 MG TAB PO ONE (13:15)
[2017-08-05] MEDS: LevoFLOXacin 500 MG TABLET PO SCH (13:28)
--- NOTE | 2017-08-05 13:37 | DSES ---
DATE OF ADMISSION: 08/03/2017 DATE OF DISCHARGE: No specialists involved in the care. No complications of the stay. No procedures performed during the stay. DISCHARGE DIAGNOSES: 1. Left lower lobe pneumonia. 2. History of chronic obstructive pulmonary disease (COPD) with chronic hypoxic respiratory failure, 2 liters of oxygen at home, that he is not always compliant with. 3. Diabetes. 4. Diastolic heart failure, compensated. 5. Nephrolithiasis. 6. Atrial fibrillation, on Xarelto. 7. Hypertension, uncontrolled. Following is a summary of his presentation: This is a 71-year-old who presented with shortness of breath. Was found to have a nonproductive cough, increasing dyspnea, was hypoxic, and found to have pneumonia on chest CT. Was treated empirically with antibiotics, improved markedly. Blood cultures are negative. He was found to be hypoxic at rest. He does have oxygen at home, which he is not always compliant with. He was encouraged to use his preexisting oxygen. On day of discharge, he is feeling well. Temperature is 98.0, pulse 91, respiratory rate 20, blood pressure 149/78, 95% on room air, although he drops to 87% with activity. He is awake, appropriately interactive, pleasantly conversant. Breathing is symmetrical. Coarse upper airway sounds. No wheezes, rales, or rhonchi. Heart is in a regular rate and rhythm. Normal S1, S2. Abdomen soft, doughy, nontender. DISCHARGE INSTRUCTIONS: Include the following: Followup with Liz Hilliard 08/12/2017 at 11 a.m. Activity as tolerated. Diet as tolerated. Continue using home oxygen. MEDICATIONS AT THE TIME OF DISCHARGE: Include: - Levaquin 500 mg by mouth daily for 5 more days - prednisone 40 mg by mouth daily for 4 more days - allopurinol 300 mg by mouth every evening - benazepril 20 mg by mouth daily at bedtime - vitamin B12 supplement - doxazosin 2 mg by mouth daily at bedtime - Lantus 25 units subcutaneously at bedtime - metoprolol XL 200 mg by mouth daily - potassium citrate 1000 mg by mouth twice daily - pravastatin 80 mg by mouth daily at bedtime - Xarelto 20 mg by mouth daily - torsemide 40 mg by mouth twice daily - vitamin D supplement 50,000 units weekly
== END 2017-08-05 14:19 | disposition home or self-care (01) | DRG 193 ==
LOC: M ED 20:54 → M ED INP 08-03 02:02 → M MSPAV 08-03 23:00
PROVIDERS: ADMIT Internal Medicine; ATTEND Internal Medicine
DX: J18.9 Pneumonia, unspecified organism (principal); J96.21 Acute and chronic respiratory failure with hypoxia; N17.9 Acute kidney failure, unspecified; I50.32 Chronic diastolic (congestive) heart failure; I13.0 Hypertensive heart and chronic kidney disease with heart failure and stage 1 through stage 4 chronic kidney disease, or unspecified chronic kidney disease; J44.0 Chronic obstructive pulmonary disease with (acute) lower respiratory infection; N18.3 Chronic kidney disease, stage 3 (moderate); I48.91 Unspecified atrial fibrillation; I25.10 Atherosclerotic heart disease of native coronary artery without angina pectoris; E11.9 Type 2 diabetes mellitus without complications; E78.5 Hyperlipidemia, unspecified; Z85.828 Personal history of other malignant neoplasm of skin; Z87.891 Personal history of nicotine dependence; Z79.4 Long term (current) use of insulin; Z79.01 Long term (current) use of anticoagulants; Z79.899 Other long term (current) drug therapy; Z88.8 Allergy status to other drugs, medicaments and biological substances

== ENCOUNTER 2017-08-19 13:16 | Emergency (ER) | payer MEDICARE, BC, OTHER ==
[~2017-08-19] VITALS: Ht 182.9 cm; Wt 86.4 kg
[~2017-08-19 13:16] MED LIST changes: +LEVA1TAB2 PO; +PRED20TA PO; +TORS20TA2 PO
[2017-08-19] MEDS ORDERED: GI COCKTAIL 50ML BTL(HYOSCYAMINE/MAALOX/LIDOCAINE VISCOUS)(1:3:1) PO ONE (14:00)
[2017-08-19] MEDS ORDERED: ASPIRIN 81 MG CHEW TABLET PO ONE (14:00)
[2017-08-19 14:18] LABS: BASO % 0.3 % (0.0-1.0); EOS # 0.3 10^3/uL (0.0-0.50); IMMATURE GRANULOCYTE % 0.7 % (0-0); LYMPH # 0.5 10^3/uL (1.5-4.5); LYMPH % 3.1 % (24.0-44.0); MEAN CORPUSCULAR HEMOGLOBIN 29.7 pg (27.0-33.0); MEAN CORPUSCULAR HGB CONC 31.9 g/dl (32.0-36.5); MEAN CORPUSCULAR VOLUME 93.1 fl (80.0-96.0); MONO # 1.2 10^3/uL (0.0-0.8); MONO % 8.4 % (0.0-5.0); NEUTROPHILS # 12.6 10^3/uL (1.8-7.7); NEUTROPHILS % 85.5 % (36.0-66.0); PLATELET COUNT, AUTOMATED 223 10^3/uL (150-450); RED CELL DISTRIBUTION WIDTH 14.5 % (11.5-14.5); WHITE BLOOD COUNT 14.7 10^3/uL (4.0-10.0)
[2017-08-19 14:33] LABS: INR 2.85
[2017-08-19 14:37] LABS: ALBUMIN 2.6 GM/DL (3.2-5.2); ALBUMIN/GLOBULIN RATIO 0.53 (1.00-1.93); ALKALINE PHOSPHATASE 192 U/L (45-117); ALT/SGPT 63 U/L (12-78); ANION GAP 4 MEQ/L (8-16); AST/SGOT 59 U/L (7-37); BILIRUBIN,DIRECT 0.3 MG/DL (0.0-0.2); BLOOD UREA NITROGEN 61 MG/DL (7-18); CALCIUM LEVEL 8.8 MG/DL (8.8-10.2); CARBON DIOXIDE LEVEL 33 MEQ/L (21-32); CHLORIDE LEVEL 100 MEQ/L (98-107); CREATININE FOR GFR 1.79 MG/DL (0.70-1.30); GLOMERULAR FILTRATION RATE 40.1 (>42); GLUCOSE, FASTING 181 MG/DL (83-110); POTASSIUM SERUM 4.6 MEQ/L (3.5-5.1); SODIUM LEVEL 137 MEQ/L (136-145); TOTAL PROTEIN 7.5 GM/DL (6.4-8.2)
[2017-08-19] MEDS ORDERED: SUCRALFATE SUSP 1GM/10ML UD PO ONE (15:45)
[2017-08-19] MEDS ORDERED: PEPC1TAB4 PO (18:49)
[2017-08-19] MEDS ORDERED: SUCR1SS PO (18:50)
--- NOTE | 2017-08-19 19:39 | ECGEPIP ---
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
--- NOTE | 2017-08-19 20:51 | REP ---
PORTABLE CHEST: AP portable view of the chest is performed. Comparison 08/02/2017. Chronic interstitial fibrosis is seen in the lung bases with left pleural thickening inferiorly. There is no evidence of acute infiltrate. The heart is mildly enlarged. There is some mild calcification of the thoracic aorta. The mediastinal silhouette is unchanged. IMPRESSION: Cardiomegaly and chronic fibrotic change. No evidence of acute infiltrate. Signed by Amadou Ferreira MD 08/20/2017 08:32 P
[2017-08-19 22:22] VITALS: BP 128/84
--- NOTE | 2017-08-20 05:56 | ECGEPIP ---
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
--- NOTE | 2017-08-20 06:54 | REP ---
CT CHEST WITHOUT IV CONTRAST: CT chest performed without IV contrast. Scattered fibrotic changes are seen in the lungs. There are tiny pleural effusions bilaterally. There are bilateral emphysematous changes. Bullous changes are concentrated superiorly and posteriorly. Heart is mildly enlarged. There is no pericardial effusion. Subcentimeter mediastinal lymph nodes are present. There are moderate atherosclerotic calcifications of the thoracic aorta without aneurysm. Ascending aorta is ectatic at 4.5 cm in maximum diameter. There is a small hiatal hernia. IMPRESSION: Very small bilateral pleural effusions without evidence of consolidating infiltrate. Chronic fibrotic and emphysematous changes. Small hiatal hernia. Mild cardiomegaly. Signed by Amadou Ferreira MD 08/20/2017 08:34 P
--- NOTE | 2017-08-20 07:00 | REP ---
CT ABDOMEN AND PELVIS WITHOUT CONTRAST: CT abdomen and pelvis is performed without oral or IV contrast. Sagittal and coronal reconstruction images are performed. Comparison is made with multiple prior exams. The liver is grossly unremarkable. Multiple gallstones are seen in the gallbladder with no gallbladder wall edema. The spleen, adrenals and pancreas are unremarkable. There are small cysts in the right kidney without right hydronephrosis. There is a calculus in the left renal pelvis as seen on prior studies with the calculus having a diameter of 1.3 cm. There is no left hydronephrosis. There are left renal cysts. The ureters are not dilated. There are moderate atherosclerotic calcifications of the abdominal aorta without aneurysm. I see no adenopathy. There is no free air or free fluid. There is no bowel wall thickening. There is a large duodenal diverticulum noted. There is diffuse colonic diverticulosis without acute diverticulitis. There is a small umbilical hernia containing fat. There are small inguinal hernias containing fat. No pelvic mass is seen. IMPRESSION: Multiple gallstones in the gallbladder without gallbladder wall edema. Calculus in the left renal pelvis is again seen. This was seen on the prior CT of the chest 08/02/2017. There is no hydronephrosis bilaterally. Chronic diverticulosis without acute diverticulitis. Small bilateral inguinal hernias and an umbilical hernia containing fat. No free air or free fluid. Signed by Amadou Ferreira MD 08/20/2017 08:34 P
== END 2017-08-19 22:25 | disposition home or self-care (01) ==
LOC: M ED 13:16
DX: R07.9 Chest pain, unspecified (principal); R06.02 Shortness of breath; J90 Pleural effusion, not elsewhere classified; K44.9 Diaphragmatic hernia without obstruction or gangrene; K80.20 Calculus of gallbladder without cholecystitis without obstruction; E11.40 Type 2 diabetes mellitus with diabetic neuropathy, unspecified; J44.9 Chronic obstructive pulmonary disease, unspecified; I48.91 Unspecified atrial fibrillation; N18.3 Chronic kidney disease, stage 3 (moderate); I27.20 Pulmonary hypertension, unspecified; M48.00 Spinal stenosis, site unspecified; Z79.899 Other long term (current) drug therapy; Z79.01 Long term (current) use of anticoagulants; Z79.4 Long term (current) use of insulin; Z88.8 Allergy status to other drugs, medicaments and biological substances

== ENCOUNTER → 2018-01-07 | Outpatient (REF) | payer MEDICARE, OTHER ==
[2018-01-07 19:32] LABS: ALBUMIN 3.4 GM/DL (3.2-5.2); ALBUMIN/GLOBULIN RATIO 0.92 (1.00-1.93); ALKALINE PHOSPHATASE 141 U/L (45-117); ALT/SGPT 38 U/L (12-78); ANION GAP 5 MEQ/L (8-16); AST/SGOT 30 U/L (7-37); BILIRUBIN,TOTAL 0.7 MG/DL (0.2-1.0); BLOOD UREA NITROGEN 94 MG/DL (7-18); CALCIUM LEVEL 8.9 MG/DL (8.8-10.2); CARBON DIOXIDE LEVEL 33 MEQ/L (21-32); CHLORIDE LEVEL 104 MEQ/L (98-107); CHOLESTEROL LEVEL 148 MG/DL (<200); CHOLESTEROL RISK RATIO 4.352 (<5); CREATININE FOR GFR 2.58 MG/DL (0.70-1.30); GLOMERULAR FILTRATION RATE 26.2 (>42); GLUCOSE, FASTING 154 MG/DL (70-100); HDL CHOLESTEROL 34 MG/DL (>40); LDL CHOLESTEROL 77.2 MG/DL (<100); NON-HDL-C 114 MG/DL; POTASSIUM SERUM 4.4 MEQ/L (3.5-5.1); SODIUM LEVEL 142 MEQ/L (136-145); TOTAL PROTEIN 7.1 GM/DL (6.4-8.2); TRIGLYCERIDES LEVEL 184 MG/DL (<150); URIC ACID 4.4 MG/DL (3.5-7.2)
[2018-01-07 19:33] LABS: ESTIMATED AVERAGE GLUCOSE 177 MG/DL (60-110); HEMOGLOBIN A1c 7.8 %
[2018-01-07 20:00] LABS: CREATININE, URINE 54.2 MG/DL
== END ==
LOC: M SFHCPLAZ 14:45
DX: I50.30 Unspecified diastolic (congestive) heart failure (principal); E11.21 Type 2 diabetes mellitus with diabetic nephropathy; I25.10 Atherosclerotic heart disease of native coronary artery without angina pectoris; M10.9 Gout, unspecified; E78.2 Mixed hyperlipidemia
CPT/HCPCS: 84550

== ENCOUNTER → 2018-01-19 | Outpatient (CLI) | payer MEDICARE, BC, OTHER | LOC: M RAD 11:27 | DX: N28.1 Cyst of kidney, acquired (principal); I70.8 Atherosclerosis of other arteries; K80.20 Calculus of gallbladder without cholecystitis without obstruction; N18.4 Chronic kidney disease, stage 4 (severe) | CPT/HCPCS: 76775 ==

== ENCOUNTER → 2018-02-22 | Outpatient (REF) | payer MEDICARE, OTHER ==
[2018-02-22 14:42] LABS: CREATININE,RANDOM URINE 45.1 MG/DL
[2018-02-22 14:42] LABS: TOTAL PROTEIN,RANDOM URINE 68.1 MG/DL (0.0-12.0)
[2018-02-23 14:19] LABS: TOTAL PROTEIN 7.3 GM/DL (6.4-8.2)
[2018-02-24 13:22] LABS: ALBUMIN 3.99 GM/DL (3.29-5.55); ALBUMIN % 54.7 % (55.8-66.1); ALPHA-1-GLOBULIN % 5.3 % (2.9-4.9); ALPHA-1-GLOBULINS 0.39 GM/DL (0.17-0.41); BETA-1-GLOBULINS % 5.5 % (4.7-7.2); BETA-2-GLOBULINS 0.37 GM/DL (0.19-0.55); GAMMA GLOBULIN % 18.5 % (11.1-18.8); GAMMA GLOBULINS 1.35 GM/DL (0.65-1.58)
[2018-02-26 00:06] LABS: FREE KAPPA LIGHT CHAINS SERUM 90.9 mg/L (3.3-19.4); FREE LAMBDA LIGHT CHAINS SERUM 49.9 mg/L (5.7-26.3); KAPPA/LAMBDA RATIO SERUM 1.82 (0.26-1.65)
== END ==
LOC: M LAB REF 12:56
DX: N18.3 Chronic kidney disease, stage 3 (moderate) (principal); R80.9 Proteinuria, unspecified
CPT/HCPCS: 84165

== ENCOUNTER → 2018-04-01 | Outpatient (REF) | payer MEDICARE, OTHER ==
[2018-04-01 19:35] LABS: TOTAL PROTEIN,RANDOM URINE 81.2 MG/DL (0.0-12.0); URINE TOTAL PROTEIN 81.2 MG/DL (0-12)
[2018-04-08 15:02] LABS: UPEP INTERPRETATION NO M-SPIKE NOTED; URINE VOLUME RANDOM ML
== END ==
LOC: M LAB REF 17:12
DX: N18.4 Chronic kidney disease, stage 4 (severe) (principal); R80.9 Proteinuria, unspecified
CPT/HCPCS: 84166

== ENCOUNTER → 2018-05-14 | Outpatient (REF) | payer MEDICARE, OTHER ==
[2018-05-14 14:18] LABS: COMPLEMENT C3 115 MG/DL (90-180)
[2018-05-19 00:06] LABS: ANCA-ATYPICAL <1:20 titer (Neg:<1:20); ANTI DOUBLE STRAND-DNA AB 69 IU/mL (0-9); ANTI-GLOMERULAR BASEMENT MEMB 33 units (0-20); ANTINUCLEAR ANTIBODIES DIRECT Positive (Negative); CYTOPLASMIC NEUTROP AB ANCA-C <1:20 titer (Neg:<1:20); PERINUCLEAR AB ANCA-P <1:20 titer (Neg:<1:20); RNP ANTIBODIES <0.2 AI (0.0-0.9); SJOGREN'S ANTI SS-A <0.2 AI (0.0-0.9); SJOGREN'S ANTI SS-B <0.2 AI (0.0-0.9); SMITH ANTIBODIES <0.2 AI (0.0-0.9)
== END ==
LOC: M LAB REF 13:35
DX: R80.9 Proteinuria, unspecified (principal); N18.4 Chronic kidney disease, stage 4 (severe)
CPT/HCPCS: 86160

== ENCOUNTER → 2018-06-10 | Outpatient (REF) | payer MEDICARE, OTHER ==
[2018-06-10 13:44] LABS: INR 2.49; PROTHROMBIN TIME 27.4 SECONDS (12.1-14.4)
== END ==
LOC: M LAB REF 13:03
DX: Z01.818 Encounter for other preprocedural examination (principal); Z79.01 Long term (current) use of anticoagulants
CPT/HCPCS: 85610

== ENCOUNTER → 2018-07-15 | Outpatient (REF) | payer MEDICARE, OTHER ==
[2018-07-15 16:35] LABS: HEMATOCRIT 42.8 % (42.0-52.0); HEMOGLOBIN 13.5 g/dl (13.5-17.5); MEAN CORPUSCULAR HEMOGLOBIN 28.5 pg (27.0-33.0); MEAN CORPUSCULAR HGB CONC 31.5 g/dl (32.0-36.5); MEAN CORPUSCULAR VOLUME 90.5 fl (80.0-96.0); PLATELET COUNT, AUTOMATED 416 10^3/uL (150-450); RED BLOOD COUNT 4.73 10^6/uL (4.30-6.10); RED CELL DISTRIBUTION WIDTH 14.6 % (11.5-14.5); WHITE BLOOD COUNT 15.3 10^3/uL (4.0-10.0)
[2018-07-15 17:00] LABS: ALKALINE PHOSPHATASE 194 U/L (45-117); ALT/SGPT 15 U/L (12-78); ANION GAP 9 MEQ/L (8-16); AST/SGOT 18 U/L (7-37); BLOOD UREA NITROGEN 78 MG/DL (7-18); CALCIUM LEVEL 9.3 MG/DL (8.8-10.2); CARBON DIOXIDE LEVEL 35 MEQ/L (21-32); CHLORIDE LEVEL 94 MEQ/L (98-107); CREATININE FOR GFR 2.64 MG/DL (0.70-1.30); GLOMERULAR FILTRATION RATE 25.5 (>42); GLUCOSE, FASTING 80 MG/DL (70-100); POTASSIUM SERUM 4.2 MEQ/L (3.5-5.1); SODIUM LEVEL 138 MEQ/L (136-145); TOTAL PROTEIN 7.3 GM/DL (6.4-8.2)
[2018-07-15 19:43] LABS: ESTIMATED AVERAGE GLUCOSE 157 MG/DL (60-110); HEMOGLOBIN A1c 7.1 %
== END ==
LOC: M SFHCPLAZ 15:07
DX: D72.829 Elevated white blood cell count, unspecified (principal); I50.30 Unspecified diastolic (congestive) heart failure; E11.21 Type 2 diabetes mellitus with diabetic nephropathy
CPT/HCPCS: 80053

== ENCOUNTER → 2018-07-19 | Outpatient (REF) | payer MEDICARE, OTHER ==
[2018-07-19 13:32] LABS: INR 2.16; PROTHROMBIN TIME 24.5 SECONDS (12.1-14.4)
== END ==
LOC: M LAB REF 13:11
DX: Z01.812 Encounter for preprocedural laboratory examination (principal); I48.2 Chronic atrial fibrillation
CPT/HCPCS: 85610

== ENCOUNTER → 2018-08-25 | Outpatient (CLI) | payer MEDICARE, BC, OTHER ==
[~2018-08-25] MED LIST changes: +ALBU83IN INH; +ALDA25TA2 PO; +AMLO5TAB6 PO; -DOXA1TAB71 PO; +DOXA2TAB3 PO; -DRIS50002 PO; +DRIS50003 PO; +IPRA2IN INH; -LASI40TA PO; +LASI40TA9 PO; +PEPC1TAB5 PO; +POTA10808 PO; -POTA10TAB PO; +PROAAER10 INH; +SUCR1SS PO; +TIOT18INH INH; +TORS100T PO; +XARE15TA PO; -ZYLO300T4 PO; +ZYLO300T6 PO
--- NOTE | 2018-08-25 13:32 | REP ---
Clinical: Emphysema. Comparison: 07/07/2018. Technique: PA and lateral. Findings: The mediastinum and cardiac silhouette are stable. The lung francis demonstrate chronic changes/emphysema with increased interstitial markings with moderate right pleural effusion and basilar atelectasis. No pneumothorax. Impression: 1. Interstitial edema with small/moderate right effusion and basilar atelectasis. 2. Chronic emphysematous changes. Electronically Signed by Haim Lawson MD 08/25/2018 01:24 P
== END ==
LOC: M SMT 13:05
PROVIDERS: ATTEND Internal Medicine Pulmonary Disease
DX: J43.1 Panlobular emphysema (principal)

== ENCOUNTER → 2018-09-06 | Outpatient (CLI) | payer MEDICARE, BC, OTHER ==
[2018-09-06 18:34] LABS: EOS % 0.5 % (0.0-3.0); HEMATOCRIT 43.7 % (42.0-52.0); HEMOGLOBIN 13.7 g/dl (13.5-17.5); LYMPH % 2.1 % (24.0-44.0); MEAN CORPUSCULAR HEMOGLOBIN 28.4 pg (27.0-33.0); MEAN CORPUSCULAR HGB CONC 31.4 g/dl (32.0-36.5); MEAN CORPUSCULAR VOLUME 90.7 fl (80.0-96.0); MONO % 6.4 % (0.0-5.0); NEUTROPHILS % 89.8 % (36.0-66.0); PLATELET COUNT, AUTOMATED 316 10^3/uL (150-450); RED BLOOD COUNT 4.82 10^6/uL (4.30-6.10); WHITE BLOOD COUNT 14.7 10^3/uL (4.0-10.0)
[2018-09-06 18:35] LABS: BASO % 0.3 % (0.0-1.0); EOS # 0.1 10^3/uL (0.0-0.50); LYMPH # 0.3 10^3/uL (1.5-4.5); MONO # 0.9 10^3/uL (0.0-0.8); NEUTROPHILS # 13.2 10^3/uL (1.8-7.7)
[2018-09-06 18:39] LABS: INR 1.24; PROTHROMBIN TIME 15.8 SECONDS (12.1-14.4)
[2018-09-06 18:40] LABS: PARTIAL THROMBOPLASTIN TIME 40.5 SECONDS (25.4-37.6)
[2018-09-06 19:09] LABS: ALBUMIN 3.2 GM/DL (3.2-5.2); BILIRUBIN,TOTAL 0.8 MG/DL (0.2-1.0); CALCIUM LEVEL 9.3 MG/DL (8.8-10.2); CREATININE FOR GFR 2.89 MG/DL (0.70-1.30); FREE T4 1.18 NG/DL (0.76-1.46); GLOMERULAR FILTRATION RATE 22.9 (>42); POTASSIUM SERUM 5.3 MEQ/L (3.5-5.1); THYROID STIMULATING HORMONE 4.18 uIU/ML (0.358-3.740); TOTAL PROTEIN 7.6 GM/DL (6.4-8.2)
== END ==
LOC: M SMT 15:26
PROVIDERS: ATTEND Internal Medicine Pulmonary Disease
DX: J90 Pleural effusion, not elsewhere classified (principal); Z79.899 Other long term (current) drug therapy

== ENCOUNTER → 2018-10-05 | Outpatient (CLI) | payer MEDICARE, BC, OTHER ==
--- NOTE | 2018-10-05 10:56 | REP ---
Chest two views HISTORY: Pleural effusion Comparison: 08/25/2018 An increase in interstitial markings is present in the lungs consistent with chronic interstitial fibrosis. Patchy density is present in the right lower lobe consistent with atelectasis or infiltrate. Small bilateral pleural effusions are present. The cardiac silhouette is enlarged. The pulmonary vasculature is normal in appearance. There are old bilateral rib fractures. IMPRESSION: 1. Chronic interstitial fibrosis. 2. Right lower lobe atelectasis or infiltrate. 3. Small bilateral pleural effusions. 4. Cardiomegaly. Electronically Signed by Sammy Da Silva MD 10/05/2018 10:48 A
== END ==
LOC: M SMT 10:23
PROVIDERS: ATTEND Thoracic Surgery (Cardiothoracic Vascular Surgery)
DX: J90 Pleural effusion, not elsewhere classified (principal)

== ENCOUNTER → 2018-10-28 | Outpatient (REF) | payer MEDICARE, OTHER | LOC: M LAB REF 09:05 | PROVIDERS: ATTEND Specialist | DX: R22.1 Localized swelling, mass and lump, neck (principal) ==

== ENCOUNTER 2018-11-13 09:10 | Inpatient (IN) | payer MEDICARE, BC, OTHER ==
[~2018-11-13] VITALS: Ht 170.2 cm; Wt 74.5 kg
[2018-11-13] MEDS ORDERED: METO25TA4 PO (09:24)
[2018-11-13] MEDS ORDERED: NS 500 ML IV ONE (10:00)
[2018-11-13 10:13] LABS: BASO % 0.1 % (0.0-1.0); EOS # 0.1 10^3/uL (0.0-0.50); EOS % 0.2 % (0.0-3.0); HEMATOCRIT 41.3 % (42.0-52.0); HEMOGLOBIN 13.2 g/dl (13.5-17.5); LYMPH # 0.3 10^3/uL (1.5-4.5); LYMPH % 1.2 % (24.0-44.0); MEAN CORPUSCULAR HEMOGLOBIN 29.7 pg (27.0-33.0); MONO % 8.6 % (0.0-5.0); NEUTROPHILS # 21.7 10^3/uL (1.8-7.7); NEUTROPHILS % 89.1 % (36.0-66.0); PLATELET COUNT, AUTOMATED 218 10^3/uL (150-450); RED BLOOD COUNT 4.44 10^6/uL (4.30-6.10); WHITE BLOOD COUNT 24.3 10^3/uL (4.0-10.0)
[2018-11-13 10:38] LABS: MONO # 2.1 10^3/uL (0.0-0.8)
[2018-11-13 10:57] LABS: ALBUMIN 2.6 GM/DL (3.2-5.2); BILIRUBIN,DIRECT 0.8 MG/DL (0.0-0.2); BILIRUBIN,TOTAL 1.1 MG/DL (0.2-1.0); CALCIUM LEVEL 7.8 MG/DL (8.8-10.2); FREE T4 1.09 NG/DL (0.76-1.46); GLOMERULAR FILTRATION RATE 12.2 (>42); MAGNESIUM LEVEL 5.9 MG/DL (1.8-2.4); POTASSIUM SERUM 6.1 MEQ/L (3.5-5.1); THYROID STIMULATING HORMONE 5.86 uIU/ML (0.358-3.740)
[2018-11-13] MEDS ORDERED: LIDOCAINE 2% 5ML JELLY UROJET TOP ONE (11:30)
[2018-11-13] MEDS ORDERED: NS 1,000 ML IV ONE ×3 (11:30→19:00)
[2018-11-13] MEDS ORDERED: AMLO5TAB6 PO (12:23)
[2018-11-13] MEDS ORDERED: DRIS50003 PO (12:23)
[2018-11-13] MEDS ORDERED: TORS100T PO (12:23)
[2018-11-13] MEDS ORDERED: TYLE500T78 PO (12:23)
[2018-11-13] MEDS ORDERED: SPIR-10 PO (12:23)
[2018-11-13 12:39] LABS: CREATININE,RANDOM URINE 92.5 MG/DL; POTASSIUM RANDOM URINE 29.1 MEQ/L
[2018-11-13] MEDS ORDERED: NORCO, ANEXSIA 5/325MG TABLET (HYDROcodone/ACETAMINOPHEN) PO ONE (13:00)
[2018-11-13 13:02] LABS: MB/CK RELATIVE INDEX 2.74 (< OR =4); TROPONIN I 0.08 NG/ML (< 0.10)
--- NOTE | 2018-11-13 13:41 | ECGEPIP ---
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
[2018-11-13] MEDS ORDERED: ONDANSETRON 4MG/2ML VIAL (J2405) IV PRN (13:45)
[2018-11-13] MEDS ORDERED: BISACODYL 5 MG TAB PO PRN (13:45)
[2018-11-13] MEDS ORDERED: ACETAMINOPHEN TAB 650MG DOSE (2X325MG) PO PRN (13:45)
[2018-11-13] MEDS ORDERED: PATIROMER SORBITEX CALCIUM 8.4 GM POWDER PACKET (VELTASSA) PO ONE (14:00)
[2018-11-13] MEDS ORDERED: PIPERACILLIN/TAZOBACTAM SOD 3.375 GM in D5W MINI-BAG PLUS 50 ML IV SCH (14:15)
[2018-11-13] MEDS ORDERED: VANCOMYCIN HCL 750 MG, VIAL MATE ADAPTER 1 EACH in D5W 250 ML IV SCH (14:15)
[2018-11-13] MEDS: NS 1,000 ML IV SCH ×2 (14:19→20:13)
--- NOTE | 2018-11-13 14:23 | REP ---
Chest one-view HISTORY: Pleural effusion Comparison: 10/05/2018 An increase in interstitial markings is present in the lungs consistent with chronic interstitial fibrosis. Patchy density is present in the lower lobes consistent with atelectasis or infiltrates increased on the right and new on the left. Small bilateral pleural effusions are present increased on the right. The cardiac silhouette is enlarged. The pulmonary vasculature is normal in appearance. Impression: 1. Chronic interstitial fibrosis. 2. Bibasilar atelectasis or infiltrates increased on the right and new on the left. 3. Small bilateral pleural effusions increased on the right. 4. Cardiomegaly. Electronically Signed by Sammy Da Silva MD 11/13/2018 02:14 P
[2018-11-13] MEDS ORDERED: VANCOMYCIN INTERMITTENT/PULSE DOSING BY CLINICAL PHARMACIST PER DOSING PROTOCOL XX SCH (14:45)
--- NOTE | 2018-11-13 14:47 | PHACANCOPD ---
PHARMACY VANCOMYCIN DOSING Pt Demographics Demographics Patient Age:73 , Weight:69.200 , Gender: male Adjusted Body Weight Date: 11/13/18, Adjusted Body Weight: Kg Events Past 24 Hours Events Past 24 Hours: YES: Change in CrCl, Elevation in WBC; NO: Dialysis, Diuretic Therapy, Fever, Pending Diagnostics, Pending Procedures, Other Vancomycin Vancomycin Target Ranges: 15-20 mcg/ml Vancomycin Load Y/N: No Load Dose Date Time Vancomycin Load Dose: Date: Time: Vancomycin Dose Date: 11/13/18. Current Vancomycin Dose: Intermittent Dosing?: Yes Labs Labs Item Value Date Time White Blood Count 24.3 10^3/uL H 11/13/18 0949 Potassium Level 6.1 MEQ/L *H 11/13/18 0949 Creatinine 5.00 MG/DL H 11/13/18 0949 Blood Urea Nitrogen 176 MG/DL H 11/13/18 0949 Vital Signs Label Value Date Time Patient Temperature 96.9 degrees F 11/13/18919 Temperature Source Temporal 11/13/18919 Creatinine Clearance Date:11/13/18. Creatinine Clearance: . Assessment and Plan Maintaining Current Dose?: Yes Reason for dose change: No Dose Change Pharmacist Note Pharmacist Note Date: 11/13/18. Pharmacist note: Pt. reported to ED with complaints of back pain and rectum pain. Has had multiple instances of diarrhea. Pt. was found to be in RAVINDRA, SCr 5.00, baseline around 3.0. WBC elevated. Pt. was started on Zosyn and Vanco for possible sepsis. Pt was on Vanco once here in the past in Nov, however significant change in weight and renal function since then. There is no hx of MRSA at our facility. Based on current renal function we will dose Vanco intermittently until renal function improves. I have scheduled the patient to receive Vanco 1G today @1600 and have scheduled a random for tomorrow AM. We will continue to monitor closely and adjust dose as needed. ARMAAN BROWN PHARMAC[facility] Nov 13, 2018 14:47
[2018-11-13] MEDS: METOPROLOL TART 12.5 MG PER 1/2 TAB PO SCH ×2 (14:56→17:58)
--- NOTE | 2018-11-13 15:04 | HPEPDOC ---
[facility] Medical History & Physical Date of Admission Nov 13, 2018 Primary Care Physician: Liz Hilliard Attending Physician: JOSE JAY MD History and Physical CHIEF COMPLAINT: Back pain HISTORY OF PRESENT ILLNESS: Mr. Sera Perry is a 73 year old male with a medical history significant for HFpEF, CAD, A-fib (on Xarelot), diabetes, nephrolithiasis, gout, HLD, LE venostasis, COPD on 2L O2, and CKD stage IV. Patient presents to the emergency department via EMS complaining of generalized pain and discomfort. Per EMS report: pt states that he has had poor PO intake over the last few days, drinking only 1 ensure per day. He has also has had frequent loose stools. Pt is primarily complaining of back pain. While in the ED, patient was given fluid boluses and found to have a sodium of 126, BUN/Cr of 5.0/145 and an Alk Phos of 228. Patient also began to complain of generalized pain/discomfort all over his body. The hospitalist team was called for further management and care. Patient recently underwent FNA of a right-sided neck mass, read by pathology as favoring non-small cell carcinoma. Patient is aware of this diagnosis but has not yet been informed regarding the next steps for his care. PAST MEDICAL HISTORY: Chronic Diastolic Heart Failure Cor Pulmonale (chronic) CKD Stage IV COPD with chronic hypoxic respiratory failure, 2 L O2 at home Hyperlipidemia Diabetes Mellitus with nephropathy Renal lithiasis, Hx of L renal staghorn calculus Colon polyps- tubulovillous adenoma, low grade dysplasia in 1999, hyperplastic polyps in 12/07 Hypertension Diverticulosis Gout and uric acid stones B12 deficiency Mediastinal adenopathy PAST SURGICAL HISTORY: Appendectomy as teen Laminectomy for lumbar stenosis in 1999 Colonoscopy with tubular adenoma with high-grade dysplasia in 1999 MOHS surgery on scalp 03/16 SOCIAL HISTORY: Marital status: , : Saundra Children: 2 daughters, adults 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 Hx of colon carcinoma and HTN. 1 sister alive Children: 2 adult daughters ALLERGIES: Quinine Sulfate: Anaphylaxis REVIEW OF SYSTEMS: CONSTITUTIONAL: Complains of chills, night sweats, unintentional weight loss, fatigue. Denies fevers HEENT: Complains of headaches, double vision CARDIOVASCULAR: Denies chest pain/pressure RESPIRATORY: Complains of dyspnea with exertion, on 2 L of home oxygen, history of non-compliance GASTROINTESTINAL: Complains of generalized abdominal pain, cramping, 3 day history of diarrhea without bright red blood GENITOURINARY: Complains of difficulty urinating SKIN: Complains of skin laceration sustained earlier this week on R anterior ankle. MUSCULOSKELETAL: Complains of weakness, generalized muscle aches and pains, increased pain in sacral region NEUROLOGICAL: Denies numbness or tingling in his extremities PSYCHIATRIC: Complains of anxiety regarding his current medical condition HOME MEDICATIONS: Please see below. PHYSICAL EXAMINATION: VITAL SIGNS: Temperature 96.9, pulse 77, respiratory rate 20, blood pressure 101/58, pulse oximetry 97% on 2.5 L oxygen via NC. GENERAL APPEARANCE: Patient appears emaciated and cachectic, in obvious discomfort, speech periodically unintelligible HEENT: Cachectic, sunken appearing, large R-sided thyroid mass noted, conjunctiva non-icteric, JVD present CHEST: R-sided petechial bruising, not present 48 hours prior CARDIOVASCULAR: irregularly irregular rhythm, soft systolic murmur (2/6) heard over 5th intercostal space on the L. S1, S2 present. LUNGS: Diminished lung sounds throughout, poor air movement. ABDOMEN: Soft, tender to palpation, no guarding or rigidity MUSCULOSKELETAL: Able to move all extremities bilaterally, uncooperative for strength testing SKIN: Sacral ulcer, covered with clean dressing, 2 small satellite ulcers (1 cm in diameter) laterally : Valero catheter placed with collection of alberto-colored urine EXTREMITIES: No lower extremity edema or calf swelling. No calf tenderness, chronic venostasis. Bandage on anterior R ankle. NEUROLOGICAL: Awake, alert, in obvious discomfort PSYCHIATRIC: mood and affect are appropriate for patient's declining condition LABORATORY DATA: See below. IMAGING: CXR (10/05/18): Chronic interstitial fibrosis, Right lower lobe atelectasis or infiltrate, Small bilateral pleural effusions, Cardiomegaly. MICROBIOLOGY: Please see below. ASSESSMENT: Mr. Sera Perry is a 73 year old male with a medical history significant for HFpEF, CAD, A-fib, diabetes, nephrolithiasis, gout, HLD, LE venostasis, COPD, and CKD stage IV. Recently diagnosed with small cell carcinoma. Presented to the ED via EMS for back pain, loss of appetite and frequent loose stools. PLAN: Acute renal failure on CKD Stage IV -BUN/Cr at 176/5.0, patient is not yet on hemodialysis -NS at 120 mls/hr -Strict I/O, weight daily -Valero catheter placed -History of L staghorn renal calculi, renal U/S to r/o hydronephrosis -Nephrology consulted and we appreciate their input, will continue IV NS Hypotonic, hypovolemic hyponatremia - Fluid replacement with NS at 120mls/hr - Sodium of 126 upon admission, plan to monitor with BMP at 1500 and 2100 - Ur OSM of 344. Despite pathological diagnosis of non-small cell, paraneoplast ic syndromes, such as SIADH (classically assoc. with small cell) should remain in the differential. - Baseline cortisol pending Hyperkalemia - No EKG changes - Admitted to PCU with telemetry - Will consider Veltassa 8.4 mg if hyperkalemia fails to self-correct with fluid administration - Monitor with serial BMPs Decubitus Ulcer -Patient presents with a sacral decubitus ulcer with smaller satellite lesions -No obvious signs of infection -Wound care by PT R/O Sepsis -Patient is afebrile but does carry a leukocytosis of 24.3 -CXR -Lactic pending -UA with reflex culture pending -Blood Cultures pending -Broad spectrum coverage with IV Vancomycin and Zosyn. Antibiotic therapy will be tailored if a source of infection is identified. Malignancy -Presented to Dr. Whitmore (ENT) on 10/28/18 following referral from PCP for a neck mass. Needle biopsy performed. Pathology report indicates abundant malignant cells appearing singly and in sheets. Favor non small cell carcinoma. No lymphoid tissue identified. Medullary and anaplastic thyroid carcinoma are in the differential diagnosis. Metastatic carcinoma is another less likely possibility. -Alk Phos of 228 may be suggestive of osteometastasis -Oncology consulted and we appreciate their input. Given the patient's current physical state, he will unlikely be a candidate for chemotherapy. Family agreeable to hospice care. The patient, however, is not and remains a FULL CODE. -Case discussed with oncology. Plan to obtain 1. Chest CT, 2. ABD/Pelvis CT, 3. Head CT and 4. Bone Scan. These will help expedite the patient's workup for staging. Plan to have patient seen by oncology on Thursday. -[place] q4HP for [place] [address] - No LE edema or JVD appreciated - Continue supplementary oxygen via nasal cannula at 2L, Oxygen therapy orders to titrate to SpO2 >90% - Echo (03/16/18): LV systolic function is normal. Degenerative, calcific aortic valve disease, mild aortic stenosis and mild aortic regurgitation. Normal left ventricle dimensions and wall thickness. Normal regional LV wall motion and wall thickening. Mild dilation of the aortic root both the level of the sinus Valsalva and the proximal ascending aorta. Severe mitral annular calcification. Very mild mitral regurgitation, no mitral stenosis. Severe left atrial dilation. Suggestive of mild elevation of pulmonary artery systolic pressure. COPD -Centrilobular emphysema with Cor Pulmonale -Echo reviewed as above -Supplemental oxygen as above Diabetes: -Consistent carbohydrate diet -Hold home diabetes medications -Sliding scale insulin FSBS AC&HS CAD -c/w home pravastatin Sick-Sinus Syndrome -Patient was noted to have brief nocturnal episodes of high-grade AV block while he was in the hospital 08/17. -c/w home metoprolol tartrate -Patient on tele Chronic Atrial Fibrillation - c/w Xarelto for anticoagulation; adjusted to Lovenox (renally dosed) - Metoprolol for rate control; adjusted to lower dose and higher frequency CODE STATUS: Full DVT Prophylaxis: Chronic anticoagulation with Xarelto; will switch to Lovenox for now Sequentials Vital Signs Vital Signs Date Time Temp Pulse Resp B/P (MAP) Pulse Ox O2 Delivery O2 Flow Rate FiO2 11/13/18 12:54 20 11/13/18 12:30 77 101/58 (72) 97 11/13/18 10:30 Nasal Cannula 11/13/18 09:42 2.0 11/13/18 09:20 96.9 Laboratory Data Labs 24H Laboratory Tests 2 11/13/18 09:49: Immature Granulocyte % (Auto) 0.8, White Blood Count 24.3H, Red Blood Count 4.44, Hemoglobin 13.2L, Hematocrit 41.3L, Mean Corpuscular Volume 93.0, Mean Corpuscular Hemoglobin 29.7, Mean Corpuscular Hemoglobin Concent 32.0, Red Cell Distribution Width 15.4H, Platelet Count 218, Neutrophils (%) (Auto) 89.1H, Lymphocytes (%) (Auto) 1.2L, Monocytes (%) (Auto) 8.6H, Eosinophils (%) (Auto) 0.2, Basophils (%) (Auto) 0.1, Neutrophils # (Auto) 21.7H, Lymphocytes # (Auto) 0.3L, Monocytes # (Auto) 2.1H, Eosinophils # (Auto) 0.1, Basophils # (Auto) 0.0, Nucleated Red Blood Cells % (auto) 0.0, Anion Gap 11, Glomerular Filtration Rate 12.2L, Calcium Level 7.8L, Magnesium Level 5.9*H, Aspartate Amino Transf (AST/SGOT) 79H, Alanine Aminotransferase (ALT/SGPT) 50, Alkaline Phosphatase 228H, Total Bilirubin 1.1H, Direct Bilirubin 0.8H, Total Protein 6.0L, Albumin 2.6L, Albumin/Globulin Ratio 0.76L, Lipase 87, Thyroid Stimulating Hormone (TSH) 5.860H, Free Thyroxine 1.09 11/13/18 11:47: Urine Random Osmolality 344L, Urine Random Creatinine 92.5, Urine Random Sodium 36, Urine Random Potassium 29.1 CBC/BMP Laboratory Tests 11/13/18 09:49 Red Blood Count 4.44, Mean Corpuscular Volume 93.0, Mean Corpuscular Hemoglobin 29.7, Mean Corpuscular Hemoglobin Concent 32.0, Red Cell Distribution Width 15.4 H, Neutrophils (%) (Auto) 89.1 H, Lymphocytes (%) (Auto) 1.2 L, Monocytes (%) (Auto) 8.6 H, Eosinophils (%) (Auto) 0.2, Basophils (%) (Auto) 0.1, Neutrophils # (Auto) 21.7 H, Lymphocytes # (Auto) 0.3 L, Monocytes # (Auto) 2.1 H, Eosinophils # (Auto) 0.1, Basophils # (Auto) 0.0 Home Medications Scheduled Allopurinol (Zyloprim) 300 Mg Tab, 300 MG PO QHS Amlodipine Besylate (Amlodipine Besylate) 5 Mg Tab, 5 MG PO DAILY Doxazosin Mesylate (Doxazosin) 2 Mg Tab, 2 MG PO QHS Insulin Glargine (Lantus Solostar) 100 Unit/Ml Inj, 25 UNITS SC QHS Metoprolol Tartrate (Metoprolol Tartrate) 25 Mg Tab, 25 MG PO BID Pravastatin Sodium (Pravastatin Sodium) 80 Mg Tab, 80 MG PO QHS Rivaroxaban (Xarelto) 15 Mg Tab, 15 MG PO DAILY Spironolactone (Spironolactone) 25 Mg Tab, 25 MG PO DAILY Torsemide (Torsemide) 100 Mg Tab, 50 MG PO BID Vitamin D (Drisdol) 50,000 Unit Cap, 50,000 UNIT PO QWEEK SUNDAYS Scheduled PRN Acetaminophen (Tylenol Extra Strength) 500 Mg Tab, 1,500 MG PO BID PRN for PAIN / FEVER Allergies Coded Allergies: Quinine (Verified Allergy, Unknown, [facility], 11/04/16) GME ATTESTATION GME ATTESTATION My faculty preceptor for this patient encounter was physically present during the encounter and was fully available. All aspects of the patient interview, examination, medical decision making process, and medical care plan development were reviewed and approved by the faculty preceptor. The faculty preceptor is aware and concurs with the plan as stated in the body of this note and will attest to such by his/her cosignature. ATTENDING NOTE I, Jose Jay, have both independently examined this patient as well as reviewed the documentation. I have discussed in detail with the resident the findings and plan of treatment as documented in the residents documentation. I will continue to follow the patient and offer further guidance to the patients care as necessary during this hospital stay. STEPHANIE KELLY DO Nov 13, 2018 15:04 JOSE JAY MD Nov 13, 2018 16:45
[2018-11-13] MEDS: PIPERACILLIN/TAZOBACTAM SOD 2.25 GM in D5W MINI-BAG PLUS 50 ML IV SCH ×2 (15:11→23:34)
[2018-11-13] MEDS ORDERED: VANCOMYCIN HCL 1,000 MG, VIAL MATE ADAPTER 1 EACH in D5W 250 ML IV ONE (16:00)
[2018-11-13 16:02] LABS: CALCIUM LEVEL 7.2 MG/DL (8.8-10.2); CREATININE FOR GFR 4.73 MG/DL (0.70-1.30); POTASSIUM SERUM 5.8 MEQ/L (3.5-5.1)
--- NOTE | 2018-11-13 16:39 | REP ---
CT Head without contrast HISTORY: Non-small cell carcinoma COMPARISON: None An area of decreased attenuation is present in the right basal ganglia. This represents an old lacunar infarction. Areas of decreased attenuation are present in the periventricular white matter. This represents small-vessel ischemic disease. There is no intraparenchymal hemorrhage, acute infarct, mass or midline shift. The ventricular system and cortical sulci as well as subarachnoid space in the posterior fossa are dilated consistent with mild volume loss. There is no extra cerebral collection. There is no fracture. The visualized sinuses are clear. IMPRESSION: Old right basal ganglia lacunar infarction. 2. Small vessel ischemic disease. 3. Mild volume loss. Electronically Signed by Sammy Da Silva MD 11/13/2018 04:30 P
[2018-11-13 16:56] VITALS: BP 107/50
[2018-11-13] MEDS ORDERED: HumaLOG INSULIN (NovoLOG) PER UNIT SC SCH ×2 (17:30→21:00)
[2018-11-13 17:50] VITALS: BP 90/40
[2018-11-13 18:54] VITALS: BP 94/48
[2018-11-13 19:15] VITALS: BP 92/50
[2018-11-13 19:35] VITALS: BP 100/52
[2018-11-13] MEDS: PRAVASTATIN 20 MG TAB PO SCH (20:03)
[2018-11-13 20:30] VITALS: BP 106/54
[2018-11-13] MEDS ORDERED: LEVEMIR (INSULIN DETEMIR) 1 UNITS/0.01ML SC SCH (21:00)
[2018-11-13 21:42] LABS: CALCIUM LEVEL 7.1 MG/DL (8.8-10.2); CREATININE FOR GFR 4.28 MG/DL (0.70-1.30); GLOMERULAR FILTRATION RATE 14.6 (>42); POTASSIUM SERUM 5.4 MEQ/L (3.5-5.1)
[2018-11-13] MEDS: NORCO, ANEXSIA 5/325MG TABLET (HYDROcodone/ACETAMINOPHEN) PO PRN (22:11)
[2018-11-13] MEDS: NS 0.45% 1,000 ML IV SCH (22:16)
[2018-11-13] MEDS: TAMSULOSIN 0.4 MG CAP PO SCH (23:33)
[2018-11-14] VITALS (50 sets, daily range): BP systolic 86–117; BP diastolic 48–59
[2018-11-14] LABS: AMORPHOUS SEDIMENT SMALL (NEGATIVE); APPEARANCE, URINE CLOUDY (CLEAR); BACTERIA, URINE AUTO NEGATIVE (NEGATIVE); BILIRUBIN, URINE AUTO NEGATIVE (NEGATIVE); BLOOD, URINE BLOOD 2+ (NEGATIVE); COLOR, URINE YELLOW (YELLOW); GLUCOSE, URINE (UA) AUTO NEGATIVE (NEGATIVE); KETONE, URINE AUTO NEGATIVE (NEGATIVE); LEUKOCYTE ESTERASE, URINE AUTO 1+ (NEGATIVE); MUCUS, URINE SMALL (NEGATIVE); NITRITE, URINE AUTO NEGATIVE (NEGATIVE); PROTEIN, URINE AUTO NEGATIVE (NEGATIVE); RBC, URINE AUTO 24 /HPF (0-3); SPECIFIC GRAVITY URINE AUTO 1.012 (1.002-1.035); SQUAMOUS EPITHELIAL CELL UR AU 2 /HPF (0-6); UROBILINOGEN, URINE AUTO 0.2 mg/dL (0.0-2.0); WBC, URINE AUTO 26 /HPF (0-3)
[2018-11-14] MEDS ORDERED: NS 1,000 ML IV ONE (02:15)
[2018-11-14] MEDS: NORCO, ANEXSIA 5/325MG TABLET (HYDROcodone/ACETAMINOPHEN) PO PRN ×4 (04:06→21:35)
[2018-11-14 06:00] LABS: BASO % 0.1 % (0.0-1.0); EOS # 0.1 10^3/uL (0.0-0.50); EOS % 0.4 % (0.0-3.0); HEMATOCRIT 36.8 % (42.0-52.0); HEMOGLOBIN 11.6 g/dl (13.5-17.5); LYMPH % 0.8 % (24.0-44.0); MEAN CORPUSCULAR HEMOGLOBIN 29.3 pg (27.0-33.0); MEAN CORPUSCULAR HGB CONC 31.5 g/dl (32.0-36.5); MEAN CORPUSCULAR VOLUME 92.9 fl (80.0-96.0); MONO # 1.1 10^3/uL (0.0-0.8); MONO % 5.7 % (0.0-5.0); NEUTROPHILS # 18.2 10^3/uL (1.8-7.7); NEUTROPHILS % 92.1 % (36.0-66.0); PLATELET COUNT, AUTOMATED 160 10^3/uL (150-450); RED BLOOD COUNT 3.96 10^6/uL (4.30-6.10); WHITE BLOOD COUNT 19.7 10^3/uL (4.0-10.0)
[2018-11-14] MEDS: METOPROLOL TART 12.5 MG PER 1/2 TAB PO SCH ×5 (06:00→23:52)
[2018-11-14 06:32] LABS: ALBUMIN 1.9 GM/DL (3.2-5.2); CALCIUM LEVEL 6.6 MG/DL (8.8-10.2); CREATININE FOR GFR 4.02 MG/DL (0.70-1.30); GLOMERULAR FILTRATION RATE 15.7 (>42); PHOSPHORUS LEVEL 5.8 MG/DL (2.5-4.9); POTASSIUM SERUM 5.4 MEQ/L (3.5-5.1)
[2018-11-14 06:33] LABS: LYMPH # 0.2 10^3/uL (1.5-4.5)
[2018-11-14] MEDS: VANCOMYCIN ORAL SOL 250MG/5ML ORAL SYRINGE PO SCH ×4 (06:37→23:52)
[2018-11-14] MEDS: PIPERACILLIN/TAZOBACTAM SOD 2.25 GM in D5W MINI-BAG PLUS 50 ML IV SCH (06:38)
--- NOTE | 2018-11-14 06:41 | PHACANCOPD ---
PHARMACY VANCOMYCIN DOSING Pt Demographics Demographics Patient Age:73 , Weight:70.600 , Gender: male Adjusted Body Weight Date: 11/13/18, Adjusted Body Weight: Kg Events Past 24 Hours Events Past 24 Hours: NO: Dialysis, Diuretic Therapy, Change in CrCl, Fever, Elevation in WBC, Pending Diagnostics, Pending Procedures, Other Vancomycin Vancomycin Target Ranges: 15-20 mcg/ml Vancomycin Load Y/N: No Load Dose Date Time Vancomycin Load Dose: Date: Time: Vancomycin Dose Date: 11/13/18. Current Vancomycin Dose: Intermittent Dosing?: Yes Labs Labs Item Value Date Time White Blood Count 19.7 10^3/uL H 11/14/18526 Glomerular Filtration Rate 15.7 L 11/14/18526 Creatinine 4.02 MG/DL H 11/14/18526 Random Vancomycin Level 11.0 UG/ML 11/14/18526 Vital Signs Label Value Date Time Patient Temperature 98.5 degrees F 11/14/18 0400 Temperature Source Temporal 11/14/18 0400 Micro Microbiology 11/14/18 Gastrointestinal Tract Panel (PCR) - Final, Complete Clostridium Difficile A/B 11/14/18 Urine Culture, Received Pending 11/13/18 Gram Stain, Received Pending 11/13/18 Wound Culture, Received Pending Creatinine Clearance Date:11/14/18. Creatinine Clearance: [12]. Pending Labs Random 03-18 @am Assessment and Plan Maintaining Current Dose?: No Reason for dose change: No Dose Change Pharmacist Note Pharmacist Note Date: 11/14/18. Pharmacist note: Random of 11.0 is below target range. Will dose pt today with 1000mg. Random ordered for 11-15 in am. Will continue too monitor and make adjustments as needed. KAMALJIT SMITH PHARMACY Nov 14, 2018 06:40
[2018-11-14] MEDS ORDERED: GLUCOSE 4 GM CHEW TABLET PO PRN (07:00)
[2018-11-14] MEDS ORDERED: GLUCAGON FOR INJ 1 MG VIAL (J1610) SC PRN (07:00)
[2018-11-14] MEDS ORDERED: DEXTROSE 50% 50 ML SYRINGE IV PRN (07:00)
[2018-11-14 07:06] LABS: ERYTHROCYTE SEDIMENTATION RATE 46 mm/hr (0-20)
[2018-11-14] MEDS: FINASTERIDE 5 MG TAB PO SCH (07:48)
[2018-11-14] MEDS ORDERED: VANCOMYCIN HCL 1,000 MG, VIAL MATE ADAPTER 1 EACH in D5W 250 ML IV ONE (08:00)
[2018-11-14] MEDS ORDERED: ENOXAPARIN 80 MG/0.8 ML SYRINGE (J1650) SC SCH (09:00)
[2018-11-14] MEDS ORDERED: RIVAROXABAN 15 MG TAB (XARELTO) PO SCH (09:00)
--- NOTE | 2018-11-14 09:33 | ER ---
DATE OF CONSULTATION: 11/13/2018 REQUESTING PHYSICIAN: Binh Phillips MD CONSULTING PHYSICIAN: Christian Braden MD REASON FOR CONSULTATION: Management of acute renal failure, hyperkalemia, and hypermagnesemia. CHIEF COMPLAINT: The patient presented to the emergency room with back pain and abdominal pain, poor oral intake, and inability to walk. 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 He was found to have a right neck mass, which was recently biopsied, and as reported by family members, the mass is malignant, and he is not a surgical candidate for any resection of the mass at this point. The patient presented to the hospital with progressive weakness, inability to take anything by mouth, inability to walk, severe back pain, and inability to urinate. In the emergency room, the patient was found to have acute renal failure with a potassium of 6.1, creatinine of 5. The patient was very dehydrated, as well. He was found to have a magnesium of 5.9. Emergency room physician called nephrology for urgent help in the management of this patient's acute renal failure and multiple electrolyte abnormalities. I saw and evaluated the patient today morning in emergency room. Most of the history was obtained from the patient's family members, including his and his daughter. He was unable to provide any reliable history. However, he answered a few questions. PAST MEDICAL HISTORY: Past medical history of chronic kidney disease stage IV, best baseline creatinine of 2 as outpatient. History of chronic diastolic congestive heart failure. Cor. pulmonale. Chronic obstructive pulmonary disease (COPD). On home oxygen. Hyperlipidemia. Diabetes mellitus type 2. History of nephrolithiasis with left staghorn calculus. Hypertension. Diverticulosis. Chronic gout secondary to chronic kidney disease and B12 deficiency. 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 PAST SURGICAL HISTORY: History of appendectomy in the past. History of laminectomy for lumbar spinal stenosis in the year 1999. History of tubular adenoma with high-grade dysplasia in 1999. Mohs surgery of scalp in February 2017. Recent fine-needle aspiration cytology (FNAC) biopsy of the right-sided neck mass. ALLERGIES: He is allergic to QUININE. FAMILY HISTORY: No significant family history of end-stage renal disease requiring hemodialysis. There is extensive positive family history of colon cancer in father, mother, and a sibling. SOCIAL HISTORY: The patient lives at home. He denies any illicit drug abuse or alcohol abuse. REVIEW OF SYSTEMS: CONSTITUTIONAL: He reports feeling very weak and tired. He does report unintentional weight loss. EYES: He denies any blurry vision, double vision. EARS, NOSE, AND THROAT (ENT): He denies any dysphagia. He does report a mass in the right side of the neck. CARDIOVASCULAR: He denies any palpitations or chest pain. RESPIRATORY: He reports shortness of breath on mild exertion. History of COPD and oxygen dependence. GASTROINTESTINAL (GI): He reports abdominal pain. He reports decreased appetite and diarrhea, as well. GENITOURINARY: He reports difficulty with urination. MUSCULOSKELETAL: He reports muscle aches and pain. SKIN: He reports an ulcer in the back. CENTRAL NERVOUS SYSTEM (CHURCH SECRETARY): He denies any strokes or seizures. HEMATOLOGICAL AND ONCOLOGICAL: He reports recent malignant mass diagnosis in the right neck. PSYCHIATRIC: He reports depression. ENDOCRINE: He reports diabetes mellitus type 2. All other review of systems is negative. PHYSICAL EXAMINATION: GENERAL: The patient is awake, alert, oriented times two, very weak and lethargic, cachectic, malnourished. HEAD AND NECK EXAMINATION: The patient has bitemporal wasting, sunken eyes. Mucous membranes are very dry. Neck is supple. He has a mass, which is very hard, in the right side of the neck. It is the size of a lemon. CARDIOVASCULAR: S1, S2. Regular rate. No edema of the bilateral lower extremities. RESPIRATORY: Decreased breath sounds at the bases. Otherwise, no active rales or rhonchi. ABDOMEN: Is soft. Positive bowel sounds. Bladder was palpable in the suprapubic region all the way up to the umbilicus. At once (STAT) bedside bladder scan was done. More than 850 mL of postvoid residual was found on the bladder scan. MUSCULOSKELETAL: No clubbing or cyanosis. Pulses are 2+. SKIN: The patient has a very poor skin turgor and very dry skin. CENTRAL NERVOUS SYSTEM (CHUR[employer] SECRETARY): No focal deficit. Power is 5/5 in bilateral upper extremities. PSYCHIATRIC: The patient has a depressed mood. LYMPH NODES: Large neck mass in the right side of the neck was noted. Otherwise, no axillary or inguinal lymphadenopathy was noted. LABORATORY REVIEW: CBC showed a WBC of 24.3, hemoglobin is 13.2, platelets are 218. Urine random osmolality is 344, random sodium is 36, potassium is 29.1. BMP on arrival showed sodium 126, potassium 6.1, chloride 89, bicarbonate 26, BUN 176, creatinine is 5, osmolality 335, calcium 7.8, magnesium 5.9, total bilirubin 1.1, albumin is 2.6, cortisol is pending. IMAGING: A chest x-ray was done in the emergency room. It showed a chronic interstitial fibrosis, bibasilar atelectasis, increased on the right and new on the left, small bilateral pleural effusions, and cardiomegaly. HOME MEDICATIONS: The patient's home medications include: - Tylenol as needed - allopurinol 300 mg by mouth daily - amlodipine 5 mg by mouth daily - doxazosin 2 mg nightly - Lantus 25 units nightly - metoprolol 25 mg by mouth twice a day - pravastatin 80 mg nightly - Xarelto 15 mg by mouth daily - spironolactone 25 mg daily - torsemide 50 mg by mouth twice a day - vitamin D 50,000 units once a week - albuterol as needed ASSESSMENT: A 73-year-old male with recently-diagnosed malignant mass in the right side of neck with acute renal failure, hyperkalemia, hyponatremia, hypermagnesemia, and urinary retention. PLAN: 1. Acute renal failure superimposed on chronic kidney disease stage IV. The patient's renal failure is secondary to dehydration, volume depletion, inability to take oral fluids, use of high-dose diuretic, and urinary retention. Valero catheter was ordered in the emergency room. Start the patient on intravenous (IV) fluid hydration with normal saline. Once the patient gets initial fluid bolus of normal saline, he will need half-normal saline. I expect that the patient will have postobstructive diuresis requiring aggressive half-normal saline IV hydration. Continue to monitor basic metabolic profile (BMP). No urgent need of hemodialysis at this point; and given the patient's poor prognosis and recent diagnosis of malignant mass in the right side of the neck, I would not offer hemodialysis to this patient unless his cancer is curable. 2. Hyperkalemia. It is secondary to acute renal failure, dehydration, use of spironolactone. No need of Veltassa administration at this point. Once the obstruction is relieved and the patient gets normal saline hydration, delivery of sodium to the distal tubule in the nephrons would help improve kaliuresis, potassium level will improve with that. 3. Hyponatremia. The patient has hypovolemic hypertonic hyponatremia. It would improve with normal saline. I expect that the patient would actually develop hypernatremia after he is adequately hydrated with normal saline, and he would need to be switched to half-normal saline because of postobstructive diuresis. 4. Urinary retention. The patient will get Valero catheter placement. On bedside bladder scan, there was more than 800 mL of urine in the bladder. I am going to start the patient on Flomax and finasteride, as well. 5. Leukocytosis. There is a possibility of aspiration pneumonitis, as mentioned on the x-rays. I agree with starting the patient on Zosyn 2.25 grams IV every 8 hours. He was also given a dose of vancomycin 1 gram in the emergency room. 6. Chronic atrial fibrillation. Okay to continue metoprolol. The patient has been started on renally-dosed Lovenox. 7. Malignant right-sided neck mass. Differential diagnosis includes nonsmall-cell carcinoma versus medullary thyroid cancer. The patient is going to get a CAT scan of the chest, abdomen and pelvis, and bone scan for further workup. Oncology consult has already been requested. The rest of the management and workup is as per primary team. Total critical care time spent in the management of this patient today morning in the emergency room was 1 hour and 15 minutes. The plan of care was discussed with the emergency room (ER) physician, Dr. Binh Phillips, and with the admitting physician, Dr. Jose Jay. Thank you for involving me in the care of this patient. I shall be happy to follow the patient along with you tomorrow morning. STEFANIE
--- NOTE | 2018-11-14 09:55 | REP ---
CT of the chest without IV contrast: The patient has a history of recent non small cell carcinoma. Comparison is 07/02/2018. There is a 5.3 cm soft tissue mass at the base of the neck on the right displacing the larynx to the left. There is no mediastinal lymph node enlargement. There is no axillary lymph node enlargement. The study is insensitive for hilar lymph node enlargement in the absence of IV contrast. There is a small right pleural effusion, decreased in size from the prior study. There are a few air bubbles within this pleural effusion on the study today as an interval change. There is a tiny left pleural effusion, similar to the prior study. There are bibasilar infiltrates. The, increased in size. There is a small volume of pleural fluid within the right major fissure. No The unenhanced thoracic aorta is unremarkable except for occasional calcified atheroma. Cardiac size is enlarged, unchanged. There is no pericardial effusion. There is calcified atheroma in the coronary arteries. Impression: Neck mass on the right as described. Bibasilar infiltrates. Bilateral pleural effusions. Numerous bulla throughout the lung francis bilaterally. Cardiomegaly. Electronically Signed by Amadou Dejesus MD 11/14/2018 09:46 A
[2018-11-14 10:05] LABS: C REACTIVE PROTEIN QUANTITATIV 16.5 MG/DL (0.00-0.30)
--- NOTE | 2018-11-14 10:09 | REP ---
CT of the abdomen and pelvis without IV or bowel contrast: Comparison is 07/02/2018. Clinical history states recent non small cell carcinoma: There are small bilateral pleural effusions. There were bilateral pleural effusions previously. There are a few air bubbles within the right pleural effusion. There are bibasilar lower lobe infiltrates. There were bibasilar infiltrates previously. There is cardiomegaly, unchanged. There are multiple gallbladder calculi. This is unchanged. There is no CT evidence of acute cholecystitis, however, ultrasound might be more sensitive. The visualized unenhanced hepatic parenchyma is unremarkable. The focal fluid collection along the medial margin of the liver on the comparison study is no longer present. The previous ascites adjacent to the liver is no longer present. The pancreas and spleen are normal size and unremarkable. The adrenals are unremarkable. The unenhanced right kidney is unremarkable except for except for small renal cortical cyst at the lower pole. This is unchanged. There is a nonobstructive 1.5 cm calculus in the left renal pelvis. This is unchanged. There is a 4.1 cm left renal cyst at the mid pole. This is unchanged. There is no hydronephrosis on the right on the left. No perinephric stranding. The abdominal aorta is unremarkable except for occasional calcified atheroma. There is no periaortic adenopathy or mass. There is no bowel distension or obstruction. There is sigmoid colon diverticulosis without CT evidence of diverticulitis. Pelvis: There is no ascites or adenopathy. There is a Valero catheter in the bladder, the bladder is collapsed. There are no lytic, blastic or destructive skeletal changes. Suspect there is been laminectomy at the S1 level. Impression: No evidence of adenopathy, ascites or mass. Bilateral pleural effusions. There are a few air bubbles in the right pleural effusion. Bibasilar infiltrates. Cardiomegaly. Nonobstructive left renal calculus. Bilateral renal cysts as described. S1 laminectomy. Cholelithiasis without CT evidence of acute cholecystitis, however, ultrasound might be more sensitive. Electronically Signed by Amadou Dejesus MD 11/14/2018 10:01 A
[2018-11-14] MEDS: NS 0.45% 1,000 ML IV SCH (11:06)
[2018-11-14] MEDS: SODIUM BICARBONATE 75 MEQ in NS 0.45% 1,000 ML IV SCH (14:51)
--- NOTE | 2018-11-14 15:30 | IPNPDOC ---
Text Note Date of Service The patient was seen on 11/14/18. NOTE Subjective: Patient is a 73-year-old male with a PMHx of COPD on 2L O2, Diastolic CHF, A. 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 In the emergency room, patient was found to have acute renal failure, significant leukocytosis. Patient was admitted to the hospitalist service for further evaluation and treatment. We have gone over the results of the biopsy pathology and have advised the patient and family of possible malignancy. They're aware that this is possibly a cancer. I have advised him that we will speak with oncology to evaluate staging and possibility of treatment options if the patient would like to pursue this. At this point in time it doesn't seem like the patient is a candidate for chemotherapy. Patient was seen and examined at the bedside. Currently patient notes that his diffuse pain throughout his body. Denies any nausea or vomiting. Has had poor oral intake. Denies chest pain or palpitations. Does report some shortness of breath. Denies any abdominal pain. Has been experiencing profuse diarrhea. A rectal tube has been placed. Patient has a Valero catheter in place for his urinary retention. Does not report any lower extremity swelling. Objective: Vitals (See below) General: Lying in bed, no acute distress, comfortable, AAOx3 HEENT: NC, AT CVS: RRR, +S1S2 Lungs: Fair air entry b/l, -w/r/r Abdomen: Soft, ND, NT Extremities: - Edema, - Calf tenderness Assessment and plan: Acute renal failure on CKD4 - possibly 2/2 pre-renal 2/2 poor oral intake, possibly 2/2 intra-renal 2/2 progression of underlying kidney disease, possibly 2/2 post-renal - 2/2 urinary retention - Patient's baseline creatinine appears to run between 2.2-3.0 - Creatinine on admission of 5.0; has begun to trend down - CT abdomen / pelvis 11/14: No evidence of adenopathy, ascites or mass. Bilateral pleural effusions. There are a few air bubbles in the right pleural effusion. Bibasilar infiltrates. Cardiomegaly. Nonobstructive left renal calculus. Bilateral renal cysts as described. S1 laminectomy. Cholelithiasis without CT evidence of acute cholecystitis, however, ultrasound might be more sensitive. - Nephrology on consultation - c/w IV fluid hydration Hypotonic hypovolemic hyponatremia - Patient appears cachectic - Has been trending up toward normal - c/w IV fluid hydration Hyperkalemia - Has been slowly trending down - No EKG changes - c/w Telemetry monitoring - Will repeat BMP / Mg Leukocytosis / Sepsis - possibly 2/2 multiple sources; HCAP; UTI; Sacral decubitus Ulcer (Stage 3); C. diff colitis - Patient has complained of generalized weakness and fatigue - On 11/14/2018 patient has become hypothermic - Patient has been experiencing profuse diarrhea - Leukocytosis / CRP has been improving; No lactic acidosis - Blood cultures pending; Sputum culture pending; Wound cultures pending; Urine cultures pending; GI panel 11/14: C. diff A/B - Patient has a rectal tube in place - c/w Zosyn and Vancomycin (Day #2); c/w Vancomycin PO (Day #1) - Will start warmed IV fluids, blankets and bear huggers - Consulted surgery / PT wound care for possible debridement of Sacral decubitus ulcer Bilateral pleural effusions - Patient has had a history of pleural effusions and has had a thoracocentesis performed 07/02/2018 with 1500 cc of fluid removal - Fluid analysis at that time was consistent with exudative etiology and cultures showed ROSEOMONAS GILARDII - Patient has received 7 days of antibiotic therapy - Imaging now was consistent with some bubbles on the right pleural effusion - Case has been discussed with pulmonology; will review the imaging and discuss further options; may require intervention Neck mass - liked 2/2 malignancy - Patient is a severe weight loss - Clinically patient has been bedbound for what he reports is one week, however, given his stage III decubitus ulcer appears to be much longer than that - ENT, Dr. 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 2. Small vessel ischemic disease. 3. Mild volume loss. - CT chest 11/13: Neck mass on the right as described. Bibasilar infiltrates. Bilateral pleural effusions. Numerous bulla throughout the lung francis bilaterally. Cardiomegaly. - Will consult ENT; discussed with Dr. Vázquez who advised that Dr. Whitmore will return by tomorrow - c/w Pain control Compensated Diastolic [place] [address] - No LE edema or JVD appreciated - Continue supplementary oxygen via nasal cannula at 2L, Oxygen therapy orders to titrate to SpO2 >90% - Echo 03/16/18: Mild , Mild AR, Severe mitral annular calcification, mild MR, no MS, severe LA dilation, mild elevation of pulmonary artery systolic pressure COPD on 2 L of oxygen at baseline; Chronic hypoxic respiratory failure - No evidence of exacerbation - Centrilobular emphysema with Cor Pulmonale - c/w inhaled therapy as ordered IDDM2 - c/w glucose checks AC / HS - Will HOLD ISS and Long acting insulin (re: poor oral intake) CAD - c/w pravastatin and metoprolol Sick-Sinus Syndrome - Patient was noted to have brief nocturnal episodes of high-grade AV block while he was in the hospital 08/17. - c/w home metoprolol tartrate - c/w telemtery Chronic Atrial Fibrillation - Will continue with rate control medications with Metoprolol; adjusted dose / frequency with hold parameters - c/w adjusted to Lovenox (renally dosed); Xarelto on HOLD DVT prophylaxis - on full anticoagulation with Lovenox Code Status: - Full Code Disposition: - Discussion with family about CODE STATUS - Continue with IV fluid hydration - Continue with broad-spectrum antibiotics - Consultation with nephrology, oncology, surgery, ENT and possibly pulmonology VS,Vandana, I+O VS, Vandana, I+O Laboratory Tests 11/13/18 15:18 Calcium Level 7.2 L 11/13/18 21:03 Calcium Level 7.1 L 11/14/18 05:27 Red Blood Count 3.96 L, Mean Corpuscular Volume 92.9, Mean Corpuscular Hemoglobin 29.3, Mean Corpuscular Hemoglobin Concent 31.5 L, Red Cell Distribution Width 15.2 H, Neutrophils (%) (Auto) 92.1 H, Lymphocytes (%) (Auto) 0.8 L, Monocytes (%) (Auto) 5.7 H, Eosinophils (%) (Auto) 0.4, Basophils (%) (Auto) 0.1, Neutrophils # (Auto) 18.2 H, Lymphocytes # (Auto) 0.2 L, Monocytes # (Auto) 1.1 H, Eosinophils # (Auto) 0.1, Basophils # (Auto) 0.0, Anion Gap 11 Vital Signs Date Time Temp Pulse Resp B/P (MAP) Pulse Ox O2 Delivery O2 Flow Rate FiO2 11/14/18 14:01 85 97/50 (66) 95 11/14/18 12:00 4.0 11/14/18 11:58 97.1 20 11/13/18 16:32 Room Air I&O- Last 24 Hours up to 6 AM 11/14/18 06:00 Intake Total 3130 ml Output Total 2575 ml Balance 555 ml KASSANDRA TAY MD Nov 14, 2018 15:30
[2018-11-14 16:16] LABS: CALCIUM LEVEL 6.9 MG/DL (8.8-10.2); CREATININE FOR GFR 3.84 MG/DL (0.70-1.30); GLOMERULAR FILTRATION RATE 16.5 (>42); POTASSIUM SERUM 5.4 MEQ/L (3.5-5.1)
--- NOTE | 2018-11-14 16:54 | REP ---
Limited abdomen ultrasound History: Acute renal failure The gallbladder is contracted. The gallbladder contains sludge and gallstones. The common bile duct measures 8.5 mm which is upper limits of normal. The liver is coarsened echogenicity. There are no focal liver lesions. The pancreas is not seen. The right kidney measures 4.7 cm in transverse by 5.4 cm in AP by 11.1 cm in cephalocaudal dimensions. There is mild hydronephrosis. There is no mass. A right pleural effusion is present. Impression: 1. Contracted gallbladder containing sludge and gallstones. 2. Mild right hydronephrosis. 3. Right pleural effusion. Electronically Signed by Sammy Da Silva MD 11/14/2018 04:45 P
[2018-11-14] MEDS: PRAVASTATIN 20 MG TAB PO SCH (21:34)
[2018-11-14] MEDS: TAMSULOSIN 0.4 MG CAP PO SCH (21:35)
[2018-11-15] VITALS (34 sets, daily range): BP systolic 87–119; BP diastolic 49–58
[2018-11-15 00:51] LABS: CREATININE 24 HOUR, URINE 464.2 MG/24HR (950-2500); CREATININE, URINE 42.2 MG/DL; TOTAL PROTEIN 24 HOUR URINE 403.7 MG/24HR (50-150); URINE TOTAL PROTEIN 36.7 MG/DL (0-12)
[2018-11-15] MEDS: NORCO, ANEXSIA 5/325MG TABLET (HYDROcodone/ACETAMINOPHEN) PO PRN (01:55)
[2018-11-15] MEDS ORDERED: IPRATROPIUM 0.5MG/ALBUTEROL 2.5MG INH SOL UD 3ML (DUONEB)(J7620) NEB PRN (02:00)
[2018-11-15] MEDS ORDERED: SODIUM BICARBONATE 75 MEQ in NS 0.45% 1,000 ML IV SCH ×2 (02:00→23:30)
[2018-11-15 02:31] LABS: ABG BASE EXCESS -5.3 (-2.0-2.0); ABG HCO3 19.9 MEQ/L (22.0-26.0); ABG O2 SATURATION 90.4 % (95.0-99.0); ABG PARTIAL PRESSURE CO2 37.4 mmHg (35.0-45.0); ABG PARTIAL PRESSURE O2 54.7 mmHg (75.0-100.0); ABG pH (ARTERIAL) 7.343 UNITS (7.350-7.450)
[2018-11-15 03:13] LABS: CALCIUM LEVEL 6.8 MG/DL (8.8-10.2); CREATININE FOR GFR 3.82 MG/DL (0.70-1.30); GLOMERULAR FILTRATION RATE 16.6 (>42); MAGNESIUM LEVEL 4.8 MG/DL (1.8-2.4); POTASSIUM SERUM 5.5 MEQ/L (3.5-5.1)
[2018-11-15] MEDS ORDERED: PATIROMER SORBITEX CALCIUM 8.4 GM POWDER PACKET (VELTASSA) PO ONE ×2 (03:30→06:45)
[2018-11-15] MEDS: VANCOMYCIN ORAL SOL 250MG/5ML ORAL SYRINGE PO SCH ×4 (05:16→23:07)
[2018-11-15] MEDS: METOPROLOL TART 12.5 MG PER 1/2 TAB PO SCH ×4 (05:16→23:50)
[2018-11-15 05:44] LABS: BASO % 0.2 % (0.0-1.0); EOS # 0.1 10^3/uL (0.0-0.50); EOS % 0.4 % (0.0-3.0); HEMATOCRIT 37.2 % (42.0-52.0); HEMOGLOBIN 11.7 g/dl (13.5-17.5); LYMPH # 0.2 10^3/uL (1.5-4.5); LYMPH % 1.1 % (24.0-44.0); MEAN CORPUSCULAR HEMOGLOBIN 29.5 pg (27.0-33.0); MEAN CORPUSCULAR HGB CONC 31.5 g/dl (32.0-36.5); MEAN CORPUSCULAR VOLUME 93.7 fl (80.0-96.0); MONO # 1.4 10^3/uL (0.0-0.8); MONO % 7.7 % (0.0-5.0); NEUTROPHILS # 16.1 10^3/uL (1.8-7.7); NEUTROPHILS % 89.7 % (36.0-66.0); PLATELET COUNT, AUTOMATED 158 10^3/uL (150-450); RED BLOOD COUNT 3.97 10^6/uL (4.30-6.10); WHITE BLOOD COUNT 17.9 10^3/uL (4.0-10.0)
[2018-11-15 06:20] LABS: ALBUMIN 1.7 GM/DL (3.2-5.2); BILIRUBIN,TOTAL 1.1 MG/DL (0.2-1.0); CALCIUM LEVEL 6.8 MG/DL (8.8-10.2); CREATININE FOR GFR 3.64 MG/DL (0.70-1.30); GLOMERULAR FILTRATION RATE 17.6 (>42); MAGNESIUM LEVEL 4.9 MG/DL (1.8-2.4); POTASSIUM SERUM 5.5 MEQ/L (3.5-5.1); TOTAL PROTEIN 5.1 GM/DL (6.4-8.2)
--- NOTE | 2018-11-15 06:27 | PHACANCOPD ---
PHARMACY VANCOMYCIN DOSING Pt Demographics Demographics Patient Age:73 , Weight:70.600 , Gender: male Adjusted Body Weight Date: 11/13/18, Adjusted Body Weight: Kg Events Past 24 Hours Events Past 24 Hours: NO: Dialysis, Diuretic Therapy, Change in CrCl, Fever, Elevation in WBC, Pending Diagnostics, Pending Procedures, Other Vancomycin Vancomycin Target Ranges: 15-20 mcg/ml Vancomycin Load Y/N: No Load Dose Date Time Vancomycin Load Dose: Date: Time: Vancomycin Dose Date: 11/13/18. Current Vancomycin Dose: Intermittent Dosing?: Yes Labs Labs Item Value Date Time White Blood Count 17.9 10^3/uL H 11/15/18 0514 Glomerular Filtration Rate 17.6 L 11/15/18 0514 Creatinine 3.64 MG/DL H 11/15/18 0514 Blood Urea Nitrogen 142 MG/DL H 11/15/18 0514 Random Vancomycin Level 17.0 UG/ML 11/15/18 0514 Vital Signs Label Value Date Time Patient Temperature 97.2 degrees F 11/15/18 0530 Temperature Source Rectal 11/15/18 0530 Micro Microbiology 11/14/18 Blood Culture, Received Pending 11/14/18 Blood Culture, Received Pending 11/14/18 Gastrointestinal Tract Panel (PCR) - Final, Complete Clostridium Difficile A/B 11/14/18 Urine Culture, Received Pending 11/13/18 Gram Stain - Final, Resulted 11/13/18 Wound Culture, Resulted Pending Creatinine Clearance Date:11/15/18. Creatinine Clearance: [17]. Pending Labs Random - @am Assessment and Plan Maintaining Current Dose?: Yes Reason for dose change: No Dose Change Pharmacist Note Pharmacist Note Date: 11/15/18. Pharmacist note: Random of 17.0 is WITHIN target range. Will dose pt today with 1000mg. Random ordered for 11-16 in am. Will continue too monitor and make adjustments as needed. KAMALJIT SMITH PHARMACY Nov 15, 2018 06:27
[2018-11-15] MEDS ORDERED: traMADol 50 MG TAB PO PRN (06:45)
[2018-11-15 07:19] LABS: INR 2.18; PROTHROMBIN TIME 24.7 SECONDS (12.1-14.4)
[2018-11-15 07:20] LABS: PARTIAL THROMBOPLASTIN TIME 50.7 SECONDS (25.4-37.6)
[2018-11-15] MEDS ORDERED: VANCOMYCIN HCL 1,000 MG, VIAL MATE ADAPTER 1 EACH in D5W 250 ML IV ONE (08:00)
[2018-11-15] MEDS: FINASTERIDE 5 MG TAB PO SCH (08:14)
[2018-11-15] MEDS: SODIUM BICARBONATE 75 MEQ in NS 0.45% 1,000 ML IV SCH (08:15)
[2018-11-15] MEDS: EUCERIN 120GM CREAM TOP SCH ×2 (08:16→20:06)
--- NOTE | 2018-11-15 08:58 | REP ---
CHEST, PORTABLE: AP portable view of the chest is performed and compared to a prior study of 11/13/2018. There are small effusions bilaterally as well as bibasilar atelectasis/infiltrate, right greater than left. There appears to be mild improvement of the parenchymal opacity in the left base with no definite change on the right. Left ventricle is prominent. There is mild calcification of the thoracic aorta. IMPRESSION: Bibasilar infiltrate/atelectasis, right greater than left, with mild improvement on the left compared to the prior study of 11/13/2018. Small bilateral pleural effusions unchanged. Electronically Signed by Amadou Ferreira MD 11/17/2018 09:50 A
--- NOTE | 2018-11-15 09:34 | IPNPDOC ---
Text Note Date of Service The patient was seen on 11/15/18. NOTE Subjective: Patient is a 73-year-old male with a PMHx of COPD on 2L O2, Diastolic CHF, A. 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 In the emergency room, patient was found to have acute renal failure, significant leukocytosis. Patient was admitted to the hospitalist service for further evaluation and treatment. We have gone over the results of the biopsy pathology and have advised the patient and family of possible malignancy. They're aware that this is possibly a cancer. I have advised him that we will speak with oncology to evaluate staging and possibility of treatment options if the patient would like to pursue this. At this point in time it doesn't seem like the patient is a candidate for chemotherapy. Patient was interviewed and examined at bedside in the PCU. He remains somewhat despondent, continues to complain of diffuse pain, and is able to answer questions. He complains of episodic nausea, improved with Zofran. He denies chest pain/pressure or squeezing. He says that he is short of breath but that it is helped with supplemental oxygen 3L via NC. He continues with his rectal tube and Valero catheter. Objective: Vitals (See below) General: Awake, alert, visually uncomfortable. No acute distress. Cachetic and malnourished. HEENT: Normocephalic, atraumatic, membranes moist, JVD present, neck mass of similar size compared with time of admission. CVS: irregular rate and rhythm, normal S1 and S2, JVD present Lungs: Poor air movement, some crackles appreciated in patients L lung base. Abdomen: Soft, mild diffuse tenderness, no guarding, no masses Skin: Stage 3 sacral ulcer without obvious drainage. R ankle wound improving. Feet extremely dry Extremities: No edema B/L. Complains of diffuse, bilateral knee, calf and ankle tenderness L > R Imaging: Echo (03/16/18): Mild , Mild AR, Severe mitral annular calcification, mild MR, no MS, severe LA dilation, mild elevation of pulmonary artery systolic pressure CT chest (11/13/18): Neck mass on the right as described. Bibasilar infiltrates. Bilateral pleural effusions. Numerous bulla throughout the lung francis bilaterally. Cardiomegaly. CT head (11/13/18): Old right basal ganglia lacunar infarction. 2. Small vessel ischemic disease. 3. Mild volume loss. Abd/Pelvis CT (11/14/18): No evidence of adenopathy, ascites or mass. Bilateral pleural effusions. There are a few air bubbles in the right pleural effusion. Bibasilar infiltrates. Cardiomegaly. Nonobstructive left renal calculus. Bila teral renal cysts as described. S1 laminectomy. Cholelithiasis without CT evidence of acute cholecystitis, however, ultrasound might be more sensitive. Assessment and plan: 1. Acute renal failure on CKD4 - possibly 2/2 pre-renal 2/2 poor oral intake, possibly 2/2 intra-renal 2/2 progression of underlying kidney disease, possibly 2/2 post-renal - 2/2 urinary retention - Patient's baseline creatinine appears to run between 2.2-3.0 - Creatinine on admission of 5.0; Downward trending, decreased to 3.64 today - Abd/Pel CT does demonstrate cholelithiasis without acute cholecystitis. Will obtain a RUQ U/S to confirm. - Nephrology on consultation - c/w IV fluid hydration 2. Elevated Liver Enzymes -possibly 2/2 ischemic liver 2/2 hypotension - AST/ALT of 1151/829 - Mild elevation of Total Bili; 1.1 - Albumin 1.7 from 1.9 on admission - PT and APTT pending - Hepatitis profile pending 3. Hypotonic hypovolemic hyponatremia - Patient appears cachectic, history of malnourishment - Sodium remaining around 129 - c/w IV fluid hydration with 0.45% NaCl 4. Hyperkalemia - Has been slowly trending down, 6.1 on admission - Remains 5.5. Two doses of Veltassa 8.4 given overnight - No EKG changes - c/w Telemetry monitoring - Will repeat BMP / Mg 5. Leukocytosis / Sepsis - possibly 2/2 multiple sources; HCAP; UTI; Sacral decubitus Ulcer (Stage 3); C. diff colitis - Patient has complained of generalized weakness and fatigue - On 11/14/2018 patient became hypothermic, dropping to 96.8 rectally. c/w warmed IV fluids, blankets and bear hugger. - Patient has been experiencing profuse diarrhea - Leukocytosis trending downward from 24.3 on admission to 17.9 this morning - CRP trending downward from 16.5 on admission to 13.0 this morning - No lactic acidosis (1.8) - Blood cultures pending; Sputum culture pending - Urine cultures pending; GI panel 11/14: C. diff A/B, c/w Vancomycin PO (Day #2) - Patient has a rectal tube in place - Wound cultures indicate Proteus Mirabilis with a few colonies of GBS. Sensitivities to Ceftriaxone - c/w Zosyn and Vancomycin (Day #3) - Consulted surgery / PT wound care for possible debridement of Sacral decubitus ulcer - Consulted ID 6. Sacral Decubitus Ulcer- 2/2 pressure necrosis, 2/2 to diarrhea - Central tract, no deeper than SQ, small necrotic disk 1.5 cm in diameter, no purulent drainage - No debridement at this time - c/w with desitin cream - c/w foam dressing and frequent turning - Surgery consulted 7. Bilateral pleural effusions - Patient has had a history of pleural effusions and has had a thoracocentesis performed 07/02/2018 with 1500 cc of fluid removal - Fluid analysis at that time was consistent with exudative etiology and c ultures showed ROSEOMONAS GILARDII - Patient has received 7 days of antibiotic therapy - Imaging now was consistent with some bubbles on the right pleural effusion - Case has been discussed with pulmonology; will require IR guided drainage via thoracentesis. - Xarelto held yesterday and today, IR would like INR below 1.5, likely to have thoracentesis tomorrow; will discuss with ID 8. Neck mass - liked 2/2 malignancy - Patient is a severe weight loss - Clinically patient has been bedbound for what he reports is one week, however, given his stage III decubitus ulcer appears to be much longer than that - ENT, Dr. 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 Whitmore; currently, patient is not a surgical candidate and has been advised that there is nothing further that can be done - Tramadol 50 mg PO q12HP for pain control - Oncology on consult 9. Compensated Diastolic [place] [address] on admission - No LE edema or JVD appreciated - Yesterday, patient required supplemental O2 at 5L. Reduced requirement of 3L this morning - Continue supplementary oxygen via nasal cannula at 2L, Oxygen therapy orders to titrate to SpO2 >90% 10. COPD on 2 L of oxygen at baseline; Chronic hypoxic respiratory failure - No evidence of exacerbation - Centrilobular emphysema with Cor Pulmonale - c/w inhaled therapy as ordered 11. IDDM2 - c/w glucose checks AC / HS - Will HOLD ISS and Long acting insulin (re: poor oral intake) 12. CAD - c/w pravastatin and metoprolol 13. Sick-Sinus Syndrome - Patient was noted to have brief nocturnal episodes of high-grade AV block while he was in the hospital 08/17. - c/w home metoprolol tartrate - c/w telemetry, continues in atrial fibrillation, no events over night 14. Chronic Atrial Fibrillation - Will continue with rate control medications with Metoprolol; adjusted dose / frequency with hold parameters - c/w adjusted to Lovenox (renally dosed); Xarelto on HOLD given likely need to thoracocentesis 15. DVT prophylaxis - on full anticoagulation with Lovenox Code Status: - Discussed with patient and today; Patient will be made DNR / DNI; MOLST form updated on 11/15 Disposition: - Probable TXR to ICU for greater level of care - Continue with IV fluid hydration - Continue with broad-spectrum antibiotics - Consultation with Nephrology, Oncology, Surgery, ID VS,Fishbone, I+O VS, Fishbone, I+O Laboratory Tests 11/14/18 15:34 Calcium Level 6.9 L 11/15/18 02:24 Calcium Level 6.8 L 11/15/18 05:14 Calcium Level 6.8 L, Red Blood Count 3.97 L, Mean Corpuscular Volume 93.7, Mean Corpuscular Hemoglobin 29.5, Mean Corpuscular Hemoglobin Concent 31.5 L, Red Cell Distribution Width 15.6 H, Neutrophils (%) (Auto) 89.7 H, Lymphocytes (%) (Auto) 1.1 L, Monocytes (%) (Auto) 7.7 H, Eosinophils (%) (Auto) 0.4, Basophils (%) (Auto) 0.2, Neutrophils # (Auto) 16.1 H, Lymphocytes # (Auto) 0.2 L, Monocytes # (Auto) 1.4 H, Eosinophils # (Auto) 0.1, Basophils # (Auto) 0.0, Aspartate Amino Transf (AST/SGOT) 1151 H, Alanine Aminotransferase (ALT/SGPT) 829 H, Alkaline Phosphatase 254 H, Total Bilirubin 1.1 H, Total Protein 5.1 L, Albumin 1.7 L Vital Signs Date Time Temp Pulse Resp B/P (MAP) Pulse Ox O2 Delivery O2 Flow Rate FiO2 11/15/18 08:13 18 4.0 11/15/18 08:00 97.3 97 106/58 (74) 94 11/13/18 16:32 Room Air I&O- Last 24 Hours up to 6 AM 11/15/18 06:00 Intake Total 2562.5 ml Output Total 1200 ml Balance 1362.5 ml GME ATTESTATION GME ATTESTATION My faculty preceptor for this patient encounter was physically present during the encounter and was fully available. All aspects of the patient interview, examination, medical decision making process, and medical care plan development were reviewed and approved by the faculty preceptor. The faculty preceptor is aware and concurs with the plan as stated in the body of this note and will attest to such by his/her cosignature. ATTENDING NOTE I, Jose Jay, have both independently examined this patient as well as reviewed the documentation. I have discussed in detail with the resident the findings and plan of treatment as documented in the residents documentation. I will continue to follow the patient and offer further guidance to the patients care as necessary during this hospital stay. STEPHANIE KELLY DO Nov 15, 2018 09:34 JOSE JAY MD Nov 15, 2018 13:01
--- NOTE | 2018-11-15 09:42 | CR.PDOC ---
General Surgery Consultation Date of Consultation 11/15/18 History and Physical CONSULT REPORT FOR: Dr. Jose Jay MD (hospitalist) REASON FOR CONSULTATION: Sacral decubitus ulcer HISTORY OF PRESENT ILLNESS: I was asked to see the patient to evaluate him for need for debridement of his sacral decubitus ulcer. He is a 73-year-old male who tells me that he is bedridden for at least 10 days ago the claims he's been bedridden for more than a month.. Patient has been admitted for weakness and generalized body pain at home. He also has been reportedly having multiple loose stools at home and in the hospital was found to be positive for C. difficile colitis. Due to the amount of fecal soilage as will as being bedridden he had some skin breakdown around his sacrum and close to the anal verge. He was admitted for possible severe sepsis. In this setting was asked to evaluate the see debridement will help him and evaluate whether the sacral decubitus ulcer is causing his sepsis. PAST MEDICAL HISTORY: 1. Chronic diastolic heart failure 2. COPD with cor pulmonale oxygen dependent at home 3. Chronic kidney disease possibly need of dialysis 4. Diabetes mellitus with diabetic nephropathy 5. Hypertension 6. Mediastinal lymphadenopathy 7. Some sort of neck mass versus metastatic lymph node positive for malignancy on fine-needle aspiration biopsy PAST SURGICAL HISTORY: INCLUDES: 1. Appendectomy 2. Laminectomy for lumbar stenosis 3. Colonoscopy 4. Removal of mole of the scalp ALLERGIES: Please see below. HOME MEDICATIONS: Please see below. REVIEW OF SYSTEMS: Patient mainly complains of aches all over his body otherwise was not giving much details. He seems to be well cooperative but is very uncomfortable. PHYSICAL EXAMINATION: VITALS SIGNS: Please see below. GENERAL APPEARANCE: Patient very uncomfortable, awake seems to be well oriented. He answers questions appropriately. SKIN: Warm and dry. HEENT: Looks chronically ill, emaciated. NECK: Left supraclavicular mass. LUNGS: [Clear to auscultation bilaterally. No wheezing appreciated]. HEART: Tachycardic, irregular rhythm. ABDOMEN: Abdomen is flat, soft, and nondistended. Tender all over the examination With the patient turned to his left side I examined the sacral area. Patient has a rectal tube with brown-colored loose stool. There is a lot of skin maceration around the anal verge. He has a left sacral shallow ulcer currently unstageable we'll probably down to the subcutaneous tissue maybe superficial muscle this is roughly about 3 cm in size. There is a short track close to it right in the midline with skin breakdown that appears chronic. There is no purulent drainage.. EXTREMITIES: No extremity swelling ANCILLARIES: LABORATORY DATA: Please see below. IMAGING STUDIES: This was reviewed. He had a CT abdomen and pelvis done as well as CT chest. IMPRESSION AND PLAN: Sacral ulcer, wound breakdown probably secondary to maceration from the diarrhea as well as from pressure necrosis from being bed ridden. He has a lot of raw surface around the anal verge. There is a short tract probably as deep as subcutaneous only at the middle. There is a small disc of necrotic skin (maybe no more than 1.5 cms) No purulent drainage. For now, no surgical debridement needed. Try to protect the skin around the anal verge with desitin cream. Foam dressing on the sacral wound/tract. Frequent turning. Vital Signs Vital Signs Date Time Temp Pulse Resp B/P (MAP) Pulse Ox O2 Delivery O2 Flow Rate FiO2 11/15/18 09:00 97.3 117 21 94/49 (64) 91 3.0 11/13/18 16:32 Room Air I&Os I&O- Last 24 Hours up to 6 AM 11/15/18 06:00 Intake Total 2562.5 ml Output Total 1200 ml Balance 1362.5 ml Laboratory Data Labs 24H Laboratory Tests 2 11/14/18 11:48: Bedside Glucose (Misc Panel) 124H 11/14/18 15:34: Anion Gap 12, Glomerular Filtration Rate 16.5L, Blood Urea Nitrogen 153H, Creatinine 3.84H, Sodium Level 129L, Potassium Level 5.4H, Chloride Level 98, Carbon Dioxide Level 19L, Calcium Level 6.9L, Magnesium Level 4.9*H 11/14/18 17:20: Bedside Glucose (Misc Panel) 94 11/15/18 00:08: Bedside Glucose (Misc Panel) 92 11/15/18 02:10: Blood Gas Bicarbonate Standard 20.0L, Arterial Blood pH 7.343L, Arterial Blood Partial Pressure CO2 37.4, Arterial Blood Partial Pressure O2 54.7L, Arterial Blood Total CO2 21.0L, Arterial Blood HCO3 19.9L, Arterial Blood Base Excess - 5.3L, Arterial Blood Oxygen Saturation 90.4L 11/15/18 02:24: Anion Gap 10, Glomerular Filtration Rate 16.6L, Blood Urea Nitrogen 146H, Creatinine 3.82H, Sodium Level 129L, Potassium Level 5.5H, Chloride Level 98, Carbon Dioxide Level 21, Calcium Level 6.8L, Magnesium Level 4.8*H, C-Reactive Protein, Quantitative 13.00H 11/15/18 05:14: Anion Gap 11, Glomerular Filtration Rate 17.6L, Blood Urea Nitrogen 142H, Creatinine 3.64H, Sodium Level 129L, Potassium Level 5.5H, Chloride Level 99, Ca rbon Dioxide Level 19L, Calcium Level 6.8L, Magnesium Level 4.9*H, Immature Granulocyte % (Auto) 0.9, White Blood Count 17.9H, Red Blood Count 3.97L, Hemoglobin 11.7L, Hematocrit 37.2L, Mean Corpuscular Volume 93.7, Mean Corpuscular Hemoglobin 29.5, Mean Corpuscular Hemoglobin Concent 31.5L, Red Cell Distribution Width 15.6H, Platelet Count 158, Neutrophils (%) (Auto) 89.7H, Lymphocytes (%) (Auto) 1.1L, Monocytes (%) (Auto) 7.7H, Eosinophils (%) (Auto) 0.4, Basophils (%) (Auto) 0.2, Neutrophils # (Auto) 16.1H, Lymphocytes # (Auto) 0.2L, Monocytes # (Auto) 1.4H, Eosinophils # (Auto) 0.1, Basophils # (Auto) 0.0, Nucleated Red Blood Cells % (auto) 0.0, Aspartate Amino Transf (AST/SGOT) 1151H, Alanine Aminotransferase (ALT/SGPT) 829H, Alkaline Phosphatase 254H, Total Bilirubin 1.1H, Total Protein 5.1L, Albumin 1.7L, Albumin/Globulin Ratio 0.50L, Random Vancomycin Level 17.0 11/15/18 06:47: Prothrombin Time 24.7H, Prothromb Time International Ratio 2.18, Activated Parti al Thromboplast Time 50.7H CBC/BMP Laboratory Tests 11/14/18 15:34 Calcium Level 6.9 L 11/15/18 02:24 Calcium Level 6.8 L 11/15/18 05:14 Calcium Level 6.8 L, Red Blood Count 3.97 L, Mean Corpuscular Volume 93.7, Mean Corpuscular Hemoglobin 29.5, Mean Corpuscular Hemoglobin Concent 31.5 L, Red Cell Distribution Width 15.6 H, Neutrophils (%) (Auto) 89.7 H, Lymphocytes (%) (Auto) 1.1 L, Monocytes (%) (Auto) 7.7 H, Eosinophils (%) (Auto) 0.4, Basophils (%) (Auto) 0.2, Neutrophils # (Auto) 16.1 H, Lymphocytes # (Auto) 0.2 L, Monocy paula # (Auto) 1.4 H, Eosinophils # (Auto) 0.1, Basophils # (Auto) 0.0, Aspartate Amino Transf (AST/SGOT) 1151 H, Alanine Aminotransferase (ALT/SGPT) 829 H, Alkaline Phosphatase 254 H, Total Bilirubin 1.1 H, Total Protein 5.1 L, Albumin 1.7 L Microbiology Microbiology 11/14/18 Blood Culture, Received Pending 11/14/18 Blood Culture, Received Pending 11/14/18 Gastrointestinal Tract Panel (PCR) - Final, Complete Clostridium Difficile A/B 11/14/18 Urine Culture, Received Pending 11/13/18 Gram Stain - Final, Resulted 11/13/18 Wound Culture - Preliminary, Resulted Proteus Mirabilis Strep Agalactiae Group B Home Medications Scheduled Allopurinol (Zyloprim) 300 Mg Tab, 300 MG PO QHS, (Reported) Amlodipine Besylate (Amlodipine Besylate) 5 Mg Tab, 5 MG PO DAILY, (Reported) Doxazosin Mesylate (Doxazosin) 2 Mg Tab, 2 MG PO QHS, (Reported) Insulin Glargine (Lantus Solostar) 100 Unit/Ml Inj, 25 UNITS SC QHS, (Reported) Metoprolol Tartrate (Metoprolol Tartrate) 25 Mg Tab, 25 MG PO BID, (Reported) Pravastatin Sodium (Pravastatin Sodium) 80 Mg Tab, 80 MG PO QHS, (Reported) Rivaroxaban (Xarelto) 15 Mg Tab, 15 MG PO DAILY, (Reported) Spironolactone (Spironolactone) 25 Mg Tab, 25 MG PO DAILY, (Reported) Torsemide (Torsemide) 100 Mg Tab, 50 MG PO BID, (Reported) Vitamin D (Drisdol) 50,000 Unit Cap, 50,000 UNIT PO QWEEK, (Reported) SUNDAYS Scheduled PRN Acetaminophen (Tylenol Extra Strength) 500 Mg Tab, 1,500 MG PO BID PRN for PAIN / FEVER, (Reported) Allergies Coded Allergies: MS - Quinine (Verified Allergy, Unknown, [facility], 11/04/16) SHANNON PADILLA MD Nov 15, 2018 09:42
[2018-11-15 10:01] LABS: CORTISOL BASELINE 31.2 UG/DL (4.3-22.4)
--- NOTE | 2018-11-15 10:20 | IPN ---
DATE OF SERVICE: 11/14/2018 SUBJECTIVE: The patient was seen and examined at the bedside today morning. Patient is currently on IV fluid hydration. Renal function is slightly improving. He was found to have C. difficile diarrhea, IV antibiotics was stopped today morning. He has been started on oral vancomycin now. He is still complaining of abdominal pain. His blood pressures are better today as compared with yesterday. OBJECTIVE: VITAL SIGNS: Temperature is 96.3 degrees Fahrenheit, blood pressure 101/54, pulse is 84, respiratory rate of 20, saturating 93% on 4 liters via nasal cannula. INTAKE/OUTPUT: Urine output recorded as 2.2 liters yesterday, 850 mL so far today since overnight. Weight in the bed scale is 70.6 kg. PHYSICAL EXAMINATION: GENERAL: The patient is awake, alert, oriented times two, laying in bed, moderate painful distress, awake, cachectic, and malnourished. HEAD AND NECK EXAM: He has bitemporal wasting, sunken eyes. Mucous membranes are moist today. Neck is supple. There is a hard mass on the right side of the neck. CARDIOVASCULAR: S1, S2, regular rate. No edema of the bilateral lower extremities. RESPIRATORY: Decreased breath sounds at the bases, decreased inspiratory effort. No active rales or rhonchi. ABDOMEN: Abdomen is soft. Positive bowel sounds. Moderate amount of tenderness to deep palpation all over the abdomen. GENITOURINARY: Patient has an indwelling Valero catheter at this point. Urine in the bag is clear at this point. MUSCULOSKELETAL: No clubbing or cyanosis. Muscle wasting was seen. Pulses are 2+. CENTRAL NERVOUS SYSTEM: No focal deficit. Power is 5/5 in bilateral upper extremities. LAB REVIEW: CBC showed a WBC of 19.7, hemoglobin 11.6, platelets are 160. Urinalysis done yesterday showed it was cloudy with 2+ blood, 1+ leukocyte esterase. BMP today after showed sodium 129, potassium 5.4, chloride 98, bicarbonate 19, BUN 153, creatinine is 3.8, calcium 6.9, phosphorus is 5.8, magnesium is 4.9 now. MICROBIOLOGY: C. Difficile PCR in the stool is positive. IMAGING: An abdominal ultrasound was done today, it showed contracted gallbladder containing sludge and gallstones, mild right hydronephrosis, right pleural effusion. CURRENT INPATIENT MEDICATIONS: The patient's medications were all reviewed by me. IV Zosyn has been stopped. He has been started on half normal saline plus 75 mEq of bicarbonate at 75 mL an hour. Lovenox has been stopped and Xarelto is on hold. Patient is on Vancomycin 125 mg by mouth every 6 hours. ASSESSMENT AND PLAN: 1. Acute renal failure superimposed on chronic kidney disease stage IV, it is multifactorial secondary to dehydration, inability to take adequate amount of oral liquids, use of high dose diuretics, urinary retention, and C. difficile colitis diarrhea. Patient has a Valero catheter at this point. Continue IV fluid hydration. I have changed his IV fluids to bicarbonate containing fluids because patient is getting acidotic because of diarrhea. Renal function is improving. BUN and creatinine is trending down. Patient is not a candidate for renal replacement therapy at this point because of his poor overall prognosis and a malignant neck mass. 2. Hyperkalemia. It is secondary to metabolic acidosis and acute renal failure. Potassium level is 5.4, weight is accetable. No need of Veltassa administration at this point because patient is already having diarrhea because of C. Difficile. Potassium level is going to slowly improve with improvement of the renal function. Continue the IV fluid hydration at this point. 3. Hyponatremia. Patient has hypovolemic hyponatremia. Sodium was 131. He was getting hypotonic fluids. I have changed the fluids again to half normal saline plus 75 mEq of bicarbonate which is isotonic and sodium level will improve with that. 4. Urinary retention. Continue current Valero catheter. He has already been started on Flomax and Finasteride. 5. C. difficile colitis diarrhea. IV antibiotic including vancomycin and Zosyn have been stopped. Patient is currently on oral vancomycin. Continue aggressive IV fluid hydration. 6. Chronic atrial fibrillation. Patient continues to be on metoprolol. Lovenox has been stopped. 7. Metabolic acidosis. Patient has normal anion gap metabolic acidosis secondary to diarrhea and renal failure. As mentioned above he is currently on bicarbonate containing isotonic fluid. 8. Malignant right sided neck mass. Patient is getting further work-up of the mass as per recommendations from hematology/oncology. Clinically he is not a candidate for any surgery because of his multiple comorbidities, chronically malnourished state and acute renal failure. DISPOSITION: Patient overall has a very poor prognosis, however, family wants to continue the current care.
[2018-11-15] MEDS: PIPERACILLIN/TAZOBACTAM SOD 2.25 GM in D5W MINI-BAG PLUS 50 ML IV SCH ×2 (10:21→17:21)
[2018-11-15 10:37] LABS: HEPATITIS A ANTIBODY IGM NEGATIVE (NEGATIVE); HEPATITIS B CORE ANTIBODY IGM NEGATIVE (NEGATIVE); HEPATITIS B SURFACE ANTIGEN NEGATIVE (NEGATIVE); HEPATITIS C VIRUS ABY INDEX 0.1 INDEX (<0.8)
--- NOTE | 2018-11-15 13:56 | IPN ---
DATE OF SERVICE: 11/15/2018 SUBJECTIVE: Patient was seen and examined at the bedside today, morning. His is also present at the bedside. Clinically patient is slightly worse today. He still has leukocytosis. He is hypothermic and currently under a Gabrielle hugger. The renal function is slightly better today. He continues to be on intravenous (IV) fluids. Primary team is planning to transfer the patient to intensive care unit (ICU) today. OBJECTIVE: VITAL SIGNS: Temperature is 97.2 degrees Fahrenheit, blood pressure 94.51, pulse is 96, respiratory rate of 22, saturating 93% on nasal cannula at 3 liters. INTAKE AND OUTPUT: Urine output recorded as 1.1 liters yesterday, 350 mL so far today since overnight. Weight in the bed scale is 74.8 kg. PHYSICAL EXAMINATION: GENERAL: Patient is delirious. Otherwise, he wakes up. He is moaning in mild painful distress. HEAD AND NECK EXAM: Patient has bitemporal wasting, sunken eyes. Mucous membranes are still dry. Neck is supple. There is no jugular venous distention (JVD). CARDIOVASCULAR: S1, S2, regular rate. No edema of the bilateral lower extremities. RESPIRATORY: Decreased breath sounds at the bases. Otherwise, no active rales or rhonchi. ABDOMEN: Is soft, tender to deep palpation all over the abdomen. GENITOURINARY: He has an indwelling Valero catheter. MUSCULOSKELETAL: No clubbing or cyanosis. Sever muscle wasting was seen noted. Pulses are 2+. CENTRAL NERVOUS SYSTEM (A&P TECHNICIAN): Patient follows commands. Otherwise, he is delirious and moaning with pain. LAB REVIEW: Complete blood count (CBC) showed a WBC of 17.9, hemoglobin is 11.7, platelets are 158. 24-hour urine protein is 403 mg. Basic metabolic panel (BMP) showed sodium 129, potassium 5.5, chloride 99, bicarbonate is 19, BUN 142, creatinine is 3.6, it was 3.8 yesterday, calcium 6.8 magnesium is 4.9, AST is 1151, ALT is 829, alkaline phosphatase is 254, albumin is 1.7. MICROBIOLOGY: Wound culture from the sacral decubitus is growing Proteus mirabilis and streptococcus . IMAGING: A chest x-ray was done today, morning, which showed bibasilar infiltrate versus atelectasis right greater than left, small bilateral pleural effusions. CURRENT INPATIENT MEDICATIONS: Patient's medications were all reviewed by me. He has been restarted on Zosyn for possible pneumonia. He continues to be on sodium bicarbonate fluids but rate has been decreased to 60 mL/h. Lovenox has been stopped. He was also given two doses of Veltassa in the morning. ASSESSMENT AND PLAN: 1. Acute renal failure superimposed on chronic kidney disease stage IV multifactorial acute kidney injury. However, patient is responding to IV fluids. Creatinine is slowing trending down everyday. He is not a candidate for renal replacement therapy. 2. Hyperkalemia: It is secondary to renal failure. Potassium level has been persistently 5.5. He was already given Veltassa two doses by primary team. No further need of Veltassa administration at this point. 3. Hyponatremia: Patient has hypovolemic hyponatremia. He is getting isotonic fluids. Sodium level is 129, which is stable. 4. Metabolic acidosis: It is secondary to renal failure and diarrhea. Continue bicarbonate containing fluids at this point. 5. Urinary retention: Continue Valero catheter. Continue Flomax and finasteride. 5. Hypothermia: Patient is under a Gabrielle hugger. He has been started on IV Zosyn. He is being transferred to ICU. 6. Clostridium difficile colitis, diarrhea: Patient is current on oral vancomycin as well. 7. Malignant right-sided neck mass: Patient is not a surgical candidate at this point. 8. Elevated liver enzymes: I have stopped the statins at this point. DISPOSITION: Patient overall has a very poor prognosis. Because of clinical deterioration he is being transferred to ICU. [facility] HOSPITALBerenice
[2018-11-15] MEDS: DIAPER RELIEF PASTE (DESITIN) 60GM TOP SCH (15:15)
[2018-11-15] MEDS: traMADol 50 MG TAB PO PRN ×2 (16:44→23:07)
[2018-11-15] MEDS ORDERED: MORPHINE 4 MG/ML 1ML VIAL/SYRINGE (J2270) IV ONE ×2 (17:00→18:30)
[2018-11-15] MEDS: MORPHINE 4 MG/ML 1ML VIAL/SYRINGE (J2270) IV PRN (20:05)
[2018-11-15] MEDS: TAMSULOSIN 0.4 MG CAP PO SCH (20:06)
[2018-11-16] VITALS (12 sets, daily range): BP systolic 85–101; BP diastolic 48–55
[2018-11-16] MEDS: PIPERACILLIN/TAZOBACTAM SOD 2.25 GM in D5W MINI-BAG PLUS 50 ML IV SCH ×2 (02:59→09:12)
[2018-11-16 04:56] LABS: BASO % 0.1 % (0.0-1.0); EOS # 0.1 10^3/uL (0.0-0.50); EOS % 0.4 % (0.0-3.0); HEMATOCRIT 37.3 % (42.0-52.0); HEMOGLOBIN 11.5 g/dl (13.5-17.5); LYMPH % 1.1 % (24.0-44.0); MEAN CORPUSCULAR HEMOGLOBIN 28.8 pg (27.0-33.0); MEAN CORPUSCULAR HGB CONC 30.8 g/dl (32.0-36.5); MEAN CORPUSCULAR VOLUME 93.3 fl (80.0-96.0); MONO # 1.2 10^3/uL (0.0-0.8); MONO % 7.4 % (0.0-5.0); NEUTROPHILS # 14.1 10^3/uL (1.8-7.7); PLATELET COUNT, AUTOMATED 138 10^3/uL (150-450); WHITE BLOOD COUNT 15.7 10^3/uL (4.0-10.0)
[2018-11-16 05:07] LABS: INR 2.02; PROTHROMBIN TIME 23.2 SECONDS (12.1-14.4)
[2018-11-16 05:18] LABS: LYMPH # 0.2 10^3/uL (1.5-4.5)
[2018-11-16 05:28] LABS: ALBUMIN 1.7 GM/DL (3.2-5.2); CALCIUM LEVEL 6.9 MG/DL (8.8-10.2); CREATININE FOR GFR 3.72 MG/DL (0.70-1.30); GLOMERULAR FILTRATION RATE 17.1 (>42); MAGNESIUM LEVEL 4.6 MG/DL (1.8-2.4); POTASSIUM SERUM 5.7 MEQ/L (3.5-5.1); TOTAL PROTEIN 5.2 GM/DL (6.4-8.2); VANCOMYCIN RANDOM 23.8 UG/ML
[2018-11-16] MEDS: MORPHINE 4 MG/ML 1ML VIAL/SYRINGE (J2270) IV PRN ×6 (05:45→18:58)
[2018-11-16] MEDS: METOPROLOL TART 12.5 MG PER 1/2 TAB PO SCH (06:00)
[2018-11-16] MEDS: VANCOMYCIN ORAL SOL 250MG/5ML ORAL SYRINGE PO SCH (06:06)
--- NOTE | 2018-11-16 06:58 | PHACANCOPD ---
PHARMACY VANCOMYCIN DOSING Pt Demographics Demographics Patient Age:73 , Weight:74.500 , Gender: male Adjusted Body Weight Date: 11/13/18, Adjusted Body Weight: Kg Vancomycin Vancomycin Target Ranges: 15-20 mcg/ml Vancomycin Load Y/N: No Load Dose Date Time Vancomycin Load Dose: Date: Time: Vancomycin Dose Date: 11/13/18. Current Vancomycin Dose: Intermittent Dosing?: Yes Labs Micro Microbiology 11/14/18 Blood Culture - Preliminary, Resulted No growth after 24 hours . All specim... 11/14/18 Blood Culture - Preliminary, Resulted No growth after 24 hours . All specim... 11/14/18 Gastrointestinal Tract Panel (PCR) - Final, Complete Clostridium Difficile A/B 11/15/18 MRSA Screen, Received Pending 11/14/18 Urine Culture - Final, Complete 11/13/18 Gram Stain - Final, Complete 11/13/18 Wound Culture - Final, Complete Proteus Mirabilis Escherichia Coli Strep Agalactiae Group B Creatinine Clearance Date:11/15/18. Creatinine Clearance: [17]. Pending Labs Random 11-17 @am Assessment and Plan Maintaining Current Dose?: No Reason for dose change: Trough too high Pharmacist Note Pharmacist Note Date: 11/16/18. Pharmacist note:Random Vancomycin level drawn this morning @4:12 reported as 23.8-previous days have resulted in increasing trough levels of 11 and 17. Will withhold today's dose and schedule next random draw for 11/17. Will continue to follow Date: 11/15/18. Pharmacist note: Random of 17.0 is WITHIN target range. Will dose pt today with 1000mg. Random ordered for 11-16 in am. Will continue too monitor and make adjustments as needed. DARI GALLARDO PHARMACY Nov 16, 2018 06:58
[2018-11-16 07:26] LABS: MB/CK RELATIVE INDEX 6.26 (< OR =4); TROPONIN I 0.34 NG/ML (< 0.10)
--- NOTE | 2018-11-16 07:40 | CR ---
DATE OF CONSULTATION: 11/15/2018 I was asked to consult by the hospitalists for an infected sacral decubitus ulcer and C. difficile colitis. HISTORY OF PRESENT ILLNESS: Mr. Perry is a 73-year-old gentleman who was recently diagnosed with a right-sided neck mass which was biopsied and was positive for non-small cell CA. The patient also has chronic kidney disease and did not want dialysis. He presented to the hospital on November 13 complaining of increasing diarrhea, generalized discomfort, pain especially in the low back area, decreased appetite. The patient was found to have a sacral decubitus ulcer for which Dr. Armenta was consulted and culture was obtained. He was found to be in acute renal failure. He had already chronic kidney disease and he has hyperkalemia, hypermagnesemia but he is not a candidate for dialysis and does not want to have dialysis. The patient has remained afebrile but he is in severe pain this afternoon. He complains of his generalized body aches and wants to be comfortable. His is considering comfort measures only (LEVEL VIAL CURVATURE GAUGER) and hospice care tomorrow. She also had discussed with the hospitalist possibly continuing antibiotics. PAST MEDICAL HISTORY: Significant for: Heart failure with preserved ejection fraction. Cor pulmonale. Chronic kidney disease. Chronic obstructive pulmonary disease (COPD) with chronic respiratory failure on 2 liters oxygen at home. Hyperlipidemia. Diabetes with nephropathy. Nephrolithiasis with a left renal staghorn calculus. Colonic polyps. Tubulovillous adenoma with low grade dysplasia in 1999 and hyperplastic polyps is 2008. Hypertension. Diverticulosis. B12 deficiency. PAST SURGICAL HISTORY: Appendectomy. Laminectomy for lumbar stenosis in 1999. Colonoscopy. Mole surgery on the scalp 2016. SOCIAL HISTORY: He is . He lives with his . He has two children. 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 He denies alcohol use. FAMILY HISTORY: Father and mother both of colon cancer and siblings have also colon cancer. ALLERGIES: 1. QUININE gave him anaphylaxis. REVIEW OF SYSTEMS: Could not be obtained as the patient is very confused and in a lot of pain. All he is complaining of is pain. PHYSICAL EXAMINATION: Temperature is 96, pulse 94, respirations 24, blood pressure 99/50, O2 sat 92% on 4 liters nasal cannula. Heart: Normal S1-S2 tachycardiac. No murmurs appreciated. Lungs: Diminished breath sounds bilaterally. Right neck mass measures about 5 x 4 cm, hard and anterior cervical mass. Abdomen: Soft, nontender. No hepatosplenomegaly. Extremities: No clubbing, cyanosis or edema. Oropharynx dry mucosa. Neck is supple. No jugular venous distention (JVD). Genitourinary (): He has an indwelling Valero catheter with dark urine. Neurologic examination: He follows commands, but seems very uncomfortable. LABORATORY DATA: White count 17.9 which is down from 24.3, hemoglobin 11.7, hematocrit 37.2, platelets 158, 89% neutrophils, 8% monocytes. Sodium 129, potassium 5.5, chloride 99, bicarb 19, BUN 142, creatinine 3.64, glucose 89, calcium 6.8, magnesium 4.9, total bilirubin 1.1, AST 1151 which has increased from 79, and ALT 829, alkaline phosphatase 254, CRP 13, total protein 5.1, albumin 1.7. Wound culture had Proteus mirabilis and Group B strep from the decubitus ulcer. Urine culture is pending. Stool for C diff was positive and blood cultures two sets show no growth after 24 hours. IMAGING: Chest x-ray showed bibasilar infiltrates, atelectasis, right greater than left with mild improvement. Small bilateral pleural effusions. Abdominal ultrasound showed a contracted gallbladder with sludge and gallstones, mild right hydronephrosis and a right pleural effusion. CT abdomen and pelvis done on 11/13 shows no lytic lesions, blastic lesions, or destructive changes of the skeleton. Laminectomy at S1. No adenopathy. There is a pleural effusion on the right side with few air bubbles. No ascites. IMPRESSION: This is 73-year-old gentleman with a recent diagnosis of non-small cell CA of the neck with chronic kidney disease and currently hyperkalemia, hypermagnesemia requiring dialysis, but he is not a candidate and does not want dialysis. He is in severe pain and is considering hospice. The patient has evidence of C. difficile colitis. He presented with diarrhea and an infected decubitus ulcer. PLAN: At this point, antibiotic management is not the most important thing. I am not sure that this will make a difference. I would not use antibiotics IV in this patient as it will make his diarrhea much worse. I would continue with p.o. vancomycin 125 q.6 h for C. difficile. I would consider discontinuing IV Zosyn and treat his decubitus ulcer with just topical treatments of Vashe dressing and Optifoam. The patient needs to be made comfortable and this is a priority at this point since he is not a candidate for dialysis and most likely has advanced malignancy that will not be responsive to therapy. Can discontinue IV Zosyn. Continue p.o. vancomycin. To make the patient comfortable, I gave him a dose of morphine 2 mg times one when I was examining him.
--- NOTE | 2018-11-16 08:02 | IPNPDOC ---
Date Seen The patient was seen on 11/16/18. Progress Note SUBJECTIVE: Family has been called re: MICROECONOMICS PROFESSOR. to meet with hospice at home at 10 am. advised her and her daughter to come into the hospital instead due to worsening clinical status. Pt remains hypotensive with systolic pressures in the 90's on metoprolol for AFib. Per Overnight RN, pt has been increasingly hypoxic and has been on ivfluids for hypotension, metabolic acidosis,and renal failure. He c/o pain everywhere. Pt denies any chest pain, palpitations, nausea, vomiting. c/o back pain, sob. Objective: Vitals (See below) General: Lying in bed, AAOx3 HEENT: NC, AT CVS:irregularly irregular +S1S2 Lungs: diminished with bibasilar crackles. Abdomen: Soft, ND, NT Extremities: - Edema, - Calf tenderness Assessment and plan: Patient is a 73-year-old male with a PMHx of COPD on 2L O2, Diastolic CHF, A. 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 In the emergency room, patient was found to have acute renal failure, significant leukocytosis. Patient was admitted to the hospitalist service for further evaluation and treatment.We have gone over the results of the biopsy pathology and have advised the patient and family of possible malignancy. They're aware that this is possibly a cancer. I have advised him that we will speak with oncology to evaluate staging and possibility of treatment options if the patient would like to pursue this. At this point in time it doesn't seem like the patient is a candidate for chemotherapy. Acute renal failure on CKD4 due to poor oral intake, volume loss from cdiff, sepsis - Patient's baseline creatinine appears to run between 2.2-3.0 - Creatinine on admission of 5.0; has begun to trend down - CT abdomen / pelvis 11/14: No evidence of adenopathy, ascites or mass. Bilateral pleural effusions. There are a few air bubbles in the right pleural effusion. Bibasilar infiltrates. Cardiomegaly. Nonobstructive left renal calculus. Bilateral renal cysts as described. S1 laminectomy. Cholelithiasis without CT evidence of acute cholecystitis, however, ultrasound might be more sensitive. - Nephrology on consultation - c/w IV fluid hydration -not a dialysis candidate. cdiff colitis ID consulted. per RN, little output via recatal tube Acute Hypoxic Respiratory Failure due to sepsis, neck mass which is inoperable, DNR/DNI check CXR since h/o diastolic CHF and currently on IVF Hypotonic hypovolemic hyponatremia - Patient appears cachectic - Has been trending up toward normal - c/w IV fluid hydration Hyperkalemia - Has been slowly trending down - No EKG changes - c/w Telemetry monitoring - Will repeat BMP / Mg Leukocytosis / Sepsis - possibly 2/2 multiple sources; HCAP; UTI; Sacral decubitus Ulcer (Stage 3); C. diff colitis - Patient has complained of generalized weakness and fatigue - On 11/14/2018 patient has become hypothermic - Patient has been experiencing profuse diarrhea - Leukocytosis / CRP has been improving; No lactic acidosis - Blood cultures pending; Sputum culture pending; Wound cultures pending; Urine cultures pending; GI panel 11/14: C. diff A/B - Patient has a rectal tube in place - c/w Zosyn and Vancomycin (Day #2); c/w Vancomycin PO (Day #1) - Will start warmed IV fluids, blankets and bear huggers - Consulted surgery / PT wound care for possible debridement of Sacral decubitus ulcer Bilateral pleural effusions - Patient has had a history of pleural effusions and has had a thoracocentesis performed 07/02/2018 with 1500 cc of fluid removal - Fluid analysis at that time was consistent with exudative etiology and cultures showed ROSEOMONAS GILARDII - Patient has received 7 days of antibiotic therapy - Imaging now was consistent with some bubbles on the right pleural effusion - Case has been discussed with pulmonology; will review the imaging and discuss further options; may require intervention Neck mass - liked 2/2 malignancy - Patient is a severe weight loss - Clinically patient has been bedbound for what he reports is one week, however, given his stage III decubitus ulcer appears to be much longer than that - ENT, Dr. Whitmore has performed a FNA of his neck mass; Pathology 10/29/18: possib ly medullary / anaplastic carcinoma / metastatic carcinoma - Patient has an elevated alkaline phosphatase; possibly suggestive of bone metastasis - CT head 11/13: Old right basal ganglia lacunar infarction. 2. Small vessel ischemic disease. 3. Mild volume loss. - CT chest 11/13: Neck mass on the right as described. Bibasilar infiltrates. Bilateral pleural effusions. Numerous bulla throughout the lung francis bilaterally. Cardiomegaly. - Will consult ENT; discussed with Dr. Vázquez who advised that Dr. Whitmore will return by tomorrow - c/w Pain control Diastolic [place] [id number] - repeat cxr today - Continue supplementary oxygen via nasal cannula at 2L, Oxygen therapy orders to titrate to SpO2 >90% - Echo 03/16/18: Mild , Mild AR, Severe mitral annular calcification, mild MR, no MS, severe LA dilation, mild elevation of pulmonary artery systolic pressure COPD on 2 L of oxygen at baseline; Chronic hypoxic respiratory failure - No evidence of exacerbation - Centrilobular emphysema with Cor Pulmonale - c/w inhaled therapy as ordered IDDM2 - c/w glucose checks AC / HS - Will HOLD ISS and Long acting insulin (re: poor oral intake) CAD - c/w pravastatin and metoprolol Sick-Sinus Syndrome - Patient was noted to have brief nocturnal episodes of high-grade AV block while he was in the hospital 08/17. - c/w home metoprolol tartrate - c/w telemtery Chronic Atrial Fibrillation - Will continue with rate control medications with Metoprolol; adjusted dose / frequency with hold parameters - c/w adjusted to Lovenox (renally dosed); Xarelto on HOLD -hypotensive, may benefit for digoxin, but appropriate for MICROECONOMICS PROFESSOR DVT prophylaxis - on full anticoagulation with Lovenox Code Status:DNR DNI Disposition: DNR DNI home hospice planned. PFS to contact Hospice to meet in hospital/ VS, I&O, [facility] Vital Signs/I&O Vital Signs Date Time Temp Pulse Resp B/P (MAP) Pulse Ox O2 Delivery O2 Flow Rate FiO2 11/16/18 06:00 97.5 99 94/55 (68) 90 11/16/18 06:00 24 6.0 11/13/18 16:32 Room Air I&O- Last 24 Hours up to 6 AM 11/16/18 06:00 Intake Total 1786 ml Output Total 945 ml Balance 841 ml Laboratory Data 24H LABS Laboratory Tests 2 11/15/18 11:58: Bedside Glucose (Misc Panel) 129H 11/15/18 18:26: Bedside Glucose (Misc Panel) 127H 11/15/18 23:05: Bedside Glucose (Misc Panel) 110 11/16/18 04:12: Immature Granulocyte % (Auto) 1.0, White Blood Count 15.7H, Red Blood Count 4.00L, Hemoglobin 11.5L, Hematocrit 37.3L, Mean Corpuscular Volume 93.3, Mean Corpuscular Hemoglobin 28.8, Mean Corpuscular Hemoglobin Concent 30.8L, Red Cell Distribution Width 15.7H, Platelet Count 138L, Neutrophils (%) (Auto) 90.0H, Lymphocytes (%) (Auto) 1.1L, Monocytes (%) (Auto) 7.4H, Eosinophils (%) (Auto) 0.4, Basophils (%) (Auto) 0.1, Neutrophils # (Auto) 14.1H, Lymphocytes # (Auto) 0.2L, Monocytes # (Auto) 1.2H, Eosinophils # (Auto) 0.1, Basophils # (Auto) 0.0, Nucleated Red Blood Cells % (auto) 0.0, Prothrombin Time 23.2H, Prothromb Time International Ratio 2.02, Anion Gap 9, Glomerular Filtration Rate 17.1L, Blood Urea Nitrogen 132H, Creatinine 3.72H, Sodium Level 129L, Potassium Level 5.7H, Chloride Level 97L, Carbon Dioxide Level 23, Calcium Level 6.9L, Aspartate Amino Transf (AST/SGOT) 811H, Alanine Aminotransferase (ALT/SGPT) 933H, Alkaline Phosphatase 355H, Total Bilirubin 1.0, Total Protein 5.2L, Albumin 1.7L, Magnesium Level 4.6*H, Albumin/Globulin Ratio 0.49L, Random Vancomycin Level 23.8 CBC/BMP Laboratory Tests 11/16/18 04:12 Red Blood Count 4.00 L, Mean Corpuscular Volume 93.3, Mean Corpuscular Hemoglobi n 28.8, Mean Corpuscular Hemoglobin Concent 30.8 L, Red Cell Distribution Width 15.7 H, Neutrophils (%) (Auto) 90.0 H, Lymphocytes (%) (Auto) 1.1 L, Monocytes (%) (Auto) 7.4 H, Eosinophils (%) (Auto) 0.4, Basophils (%) (Auto) 0.1, Neutrophils # (Auto) 14.1 H, Lymphocytes # (Auto) 0.2 L, Monocytes # (Auto) 1.2 H, Eosinophils # (Auto) 0.1, Basophils # (Auto) 0.0, Calcium Level 6.9 L, Aspartate Amino Transf (AST/SGOT) 811 H, Alanine Aminotransferase (ALT/SGPT) 933 H, Alkaline Phosphatase 355 H, Total Bilirubin 1.0, Total Protein 5.2 L, Albumin 1.7 L Microbiology Microbiology 11/14/18 Blood Culture - Preliminary, Resulted No growth after 24 hours . All specim... 11/14/18 Blood Culture - Preliminary, Resulted No growth after 24 hours . All specim... 11/14/18 Gastrointestinal Tract Panel (PCR) - Final, Complete Clostridium Difficile A/B 11/15/18 MRSA Screen, Received Pending 11/14/18 Urine Culture - Final, Complete 11/13/18 Gram Stain - Final, Complete 11/13/18 Wound Culture - Final, Complete Proteus Mirabilis Escherichia Coli Strep Agalactiae Group B LETICIA BRYANT MD Nov 16, 2018 07:04
--- NOTE | 2018-11-16 08:04 | REP ---
Portable chest x-ray: Single view. History: Right pleural effusion. Comparison chest x-ray November 15, 2018. Findings: The patient is tilted somewhat to the left during the current exposure. There is pleural thickening and pleural opacity at both bases. Increased parenchymal density is seen at both bases as well. There is no evidence of pneumothorax. EKG electrodes are seen. Heart appears enlarged unchanged. Impression: Bibasilar infiltrates in the right more so than left. Pleural thickening or pleural angle blunting bilaterally. Mild cardiomegaly. Electronically Signed by Abhijeet Silveira MD 11/16/2018 07:56 A
[2018-11-16] MEDS: EUCERIN 120GM CREAM TOP SCH (09:12)
[2018-11-16] MEDS: FINASTERIDE 5 MG TAB PO SCH (09:12)
[2018-11-16] MEDS: DIAPER RELIEF PASTE (DESITIN) 60GM TOP SCH (09:13)
[2018-11-16] MEDS: traMADol 50 MG TAB PO PRN (09:22)
[2018-11-16 10:17] LABS: ABG BASE EXCESS -5.7 (-2.0-2.0); ABG HCO3 20.4 MEQ/L (22.0-26.0); ABG O2 SATURATION 91.5 % (95.0-99.0); ABG PARTIAL PRESSURE CO2 42.3 mmHg (35.0-45.0); ABG PARTIAL PRESSURE O2 57.7 mmHg (75.0-100.0); ABG STANDARD HCO3 19.7 MEQ/L (22.0-26.0); ABG TOTAL CO2 21.7 MEQ/L (23.0-31.0); ABG pH (ARTERIAL) 7.301 UNITS (7.350-7.450)
[2018-11-16] MEDS ORDERED: SCOPOLAMINE 1MG TRANSDERMAL PATCH TOP PRN (11:30)
[2018-11-16] MEDS ORDERED: LORazepam 2 MG/ML VIAL (J2060) IV PRN (11:30)
[2018-11-16] MEDS ORDERED: ATROPINE SULFATE 1% OP SOLN 2 ML BTL SL PRN (11:30)
[2018-11-16] MEDS ORDERED: ONDANSETRON 4MG/2ML VIAL (J2405) IV PRN (11:30)
[2018-11-16] MEDS ORDERED: PATIROMER SORBITEX CALCIUM 8.4 GM POWDER PACKET (VELTASSA) PO ONE (12:00)
--- NOTE | 2018-11-16 13:40 | IPN ---
DATE: 11/16/2018 SUBJECTIVE: The patient was seen and examined at the bedside this morning i the intensive care unit (ICU). Patient is delirious. His family members, including his and daughter were present at the bedside. There is no sign for improvement of renal function. Creatinine has been fluctuating at 3.6 to 3.7. Patient is still hyperkalemic. He continues to be on IV fluids at this time. He is otherwise, hemodynamically stable. Patient is delirious and unable to communicate well with me. OBJECTIVE: VITAL SIGNS: Temperature is 97.5 degrees Fahrenheit, blood pressure 97.53, pulse 112, respiratory rate 24, saturating 90% on 6 liters by nasal cannula. Intake and output: Urine output recorded as 995 mL yesterday, 350 mL so far today since overnight. PHYSICAL EXAMINATION: GENERAL: Patient is weak, cachectic laying in bed, delirious. HEAD/NECK: Mild temporal wasting. Sunken eyes and dry tongue. Neck is supple, No jugular venous distention (JVD). CARDIOVASCULAR: S1, S2 regular rate. No edema. Bilateral lower extremities. RESPIRATORY: Decreased breath sounds at the bases. Poor inspiratory effort. ABDOMEN: Soft. Generalized tenderness to deep palpation all over the abdomen. GENITOURINARY: He has an indwelling Valero catheter. MUSCULOSKELETAL: No clubbing or cyanosis. Muscle wasting. CENTRAL NERVOUS SYSTEM (TILLER WORKER): Patient is delirious, otherwise, follows some commands and moves upper extremities. LAB REVIEW: CBC showed WBC 15.7, hemoglobin 11.5, platelets 138. BMP showed sodium 129, potassium 5.7, chloride 97, bicarbonate 23, BUN 32, creatinine 3.7, calcium 6.9, magnesium 4.6, albumin 1.7. CURRENT INPATIENT MEDICATIONS: Patient's medications are all reviewed by me. He continues to be on IV bicarbonate fluids. He continues to be on IV antibiotics as well. No other change in the medications today as compared with yesterday. ASSESSMENT/PLAN: 1. Acute renal failure superimposed on chronic kidney disease, stage IV. There is no significant improvement in renal function from yesterday. GFR has been fluctuating around 17. He is not a candidate for renal replacement therapy because of his advanced right-sided malignant neck cancer. 2. Hyperkalemia: Potassium level is not improving. I have ordered one dose of Valtassa today. 3. Metabolic acidosis: Patient is getting IV bicarbonate containing fluids. Bicarbonate level is improving at 23 today. 4. Malignant right-sided neck mass: Patient is not a candidate for surgical intervention or radiation therapy at time because of his medical condition. DISPOSITION: Patient overall has a very poor prognosis. Family members have requested hospice evaluation. If patient is made comfort measures only, then nephrology service will sign off on the case.
[2018-11-16 14:26] LABS: ANTI DOUBLE STRAND-DNA AB 36 IU/mL (0-9)
--- NOTE | 2018-11-16 20:34 | CR ---
DATE OF CONSULTATION: 11/15/2018 Dr. Jay of hospitalist service requested medical oncology consult for evaluation and management recommendations regarding malignant neck mass. Mr. Perry is a 73-year-old man with a history of CAD, a fib, diabetes, gout, COPD oxygen dependent and kidney disease admitted to the emergency room on November 13 complaining of generalized pain. He was in prerenal azotemia on arrival and acknowledged progressive weakness and decreased by mouth intake for a couple of weeks prior to admission. He was found to have a large fixed right anterior neck mass not clearly supraclavicular for which an FNA biopsy was done in early October. This was positive for malignancy read as "abundant malignant cells appearing single favor non-small cell carcinoma. No lymphoid tissue identified" and further, Dr. Soto of pathology had spoken to the nurse trying to sort out whether this was a thyroid or nathalie mass. 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 The patient's current admission begin on November 13. This was after progressive weakness and body pain at home. His workup in the last few days has included a noncontrast chest CT showing a 5.3 cm soft tissue mass at the base of the right neck displacing the larynx to the left. There is no mediastinal or axillary lymph node enlargement and without contrast the study the study was not sensitive for hilar adenopathy. Small right pleural effusion seen with a few bubbles in the effusion, tiny left pleural effusion seen some basilar infiltrate increased in size and cardiac enlarged size with no pericardial effusion. Noncontrast abdomen and pelvis CT showed resolution of previous ascites seen near the liver. Normal spleen and pancreas size, normal adrenals unremarkable kidneys nonobstructive 1.5 cm left pelvic renal calculus, a mid pole left renal cyst. No hydronephrosis on the right. No periaortic adenopathy. No pelvic ascites or adenopathy. Notable labs include a creatinine of 5 on admission, currently 3.6 (previously in the range of two to three in July. Significant transaminitis evolving 2 days on this admission with initial AST 79 today, 1151, hypoalbuminemia with he albumin 1.7, calcium 6.9 consistent with albumin no evidence of hyper or hypocalcemia, hyponatremia sodium 129, new as of 2019 for this patient significantly worse on this admission. At the bedside Mr. Perry is awake with his eyes mostly closed. Responds appropriately to questions but is somewhat plaintive and asks why I am asking questions he has already answered. He complains of pain all over his body. Denies breathing difficulties that are new. Denies chest pain or palpitations. His pain seems to relate to back and leg pain. PAST MEDICAL HISTORY: Chronic diastolic heart failure, cor pulmonale, COPD, oxygen dependent at home, stage IV, CKD hyperlipidemia, diabetes mellitus with diabetic nephropathy, renal stones, hypertension, diverticulosis, gout, B12 deficiency, mediastinal lymphadenopathy noted in the past medical history. PAST SURGICAL HISTORY: Appendectomy, laminectomy colonoscopy. Scalp Mohs surgery February 2017 SOCIAL HISTORY: Patient is , has two adult children. 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 Denies alcohol. FAMILY HISTORY: Colon cancer in his father and mother. One brother and two sisters are (? With colon cancer). ALLERGIES: Quinine REVIEW OF SYSTEMS: Very limited today, positive for pain and pertinent negatives noted above. PHYSICAL EXAMINATION: Temperature 97, blood pressure 101/50, heart rate 103, respiratory 12, pulse ox 92% on 3 liters. The patient is an emaciated appearing gentleman, supine in the bed unkempt long michael underneath which is visible a fist sized irregular fixed mass adherent to what appears to the sternocleidomastoid area above the clavicle right of midline. Respiratory: Anterior auscultation clear to auscultation bilaterally. No wheezes or rales or rubs. Cardiac: S1-S2, tachycardiac. No murmur. Abdomen: Soft, diffusely but not reproducibly tender. No rebound tenderness. No palpable organomegaly. Extremities: No edema. Lymph nodes: No palpable supraclavicular or submandibular adenopathy. No left cervical adenopathy. No masses noted above in the right cervical / sternocleidomastoid area possible thyroid mass. No palpable axillary adenopathy. LABORATORY DATA: Pertinent labs today. CBC WBC 15.7, hemoglobin 11, hematocrit 37, platelets 138, neutrophil percent 90, CMP sodium 129, potassium 5.5, BUN 146, creatinine 3.82, glucose 91, calcium 6.8, CRP 13, magnesium 4.8, albumin 1.7, TSH 5.8, T4 1.09 normal, PSA not tested. IMPRESSION: Sera Perry is an unwell 73-year-old man in acute on chronic renal failure the with a large right possible thyroid mass versus right neck lymph node conglomerate mass. Positive on FNA biopsy for malignancy without evidence of lymphoid tissue. No papillary features. 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 On noncontrast CTs there is no clear evidence of an alternate primary and no obvious thoracic or intra-abdominal or pelvic lymphadenopathy. The patient complains of diffuse pain and discomfort but no skeletal lesions seen on CT. He is in metabolic disarray. TSH is only mildly elevated with normal T4. No thyroglobulin has been obtained. The patient clearly has a malignant neck mass whether he has distant metastatic spread is unclear without further imaging for example a bone scan but notably no obvious chest masses, abdominal or pelvic masses. No obvious skeletal disease on CT bone windows. RECOMMENDATIONS: 1. Thyroglobulin. 2. PTH and PTHRP 3. Unfortunately Mr. Perry is extremely ill and extent to which workup should be pursued is somewhat unclear. At minimum a bone scan would be helpful to identify potential bone sites of disease which could explain his pain. Depending on the team and the family's wishes these can be considered. We will follow. STEAFNIE
--- NOTE | 2018-11-17 13:29 | DS.PDOC ---
Discharge Summary General Date of Admission Nov 13, 2018 at 13:17 Date of Discharge 11/17/18 dnr dni comfort measures only at 10:25 am with family at the bedside Discharge Summary [facility] DR. PASCAL NEPHROLOGY DR MARRERO SURGERY DR PADILLA INFECTIOUS DISEASE DR MOYA DISCHARGE DIAGNOSES RIGHT NECK MASS: ANAPLASTIC/MEDULLARY THYROID CANCER C DIFF COLITIS HCAP ACUTE ON CKD 4 HYPERKALEMIA ACUTE METABOLIC ACIDOSIS DIASTOLIC CHF COPD CHRONIC HYPOXIC RESPIRATORY FAILURE ON HOME OXYGEN 2 LITER ATRIAL FIBRILLATION DM HTN DISCHARGE MEDICATIONS: NONE, PT INPATIENT DISCHARGE LABS, IMAGING STUDIES, MICROBIOLOGY: PLS SEE BELOW HISTORY OF PRESENTING ILLNESS: Patient is a 73-year-old male with a PMHx of COPD on 2L O2, Diastolic CHF, A. 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 In the emergency room, patient was found to have acute renal failure, significant leukocytosis. Patient was admitted to the hospitalist service for further evaluation and treatment.We have gone over the results of the biopsy pathology and have advised the patient and family of possible malignancy. They're aware that this is possibly a cancer. I have advised him that we will speak with oncology to evaluate staging and possibility of treatment options if the patient would like to pursue this. At this point in time it doesn't seem like the patient is a candidate for chemotherapy. HOSPITAL COURSE: Acute renal failure on CKD4 due to poor oral intake, volume loss from cdiff, sepsis - Patient's baseline creatinine appears to run between 2.2-3.0 - Creatinine on admission of 5.0; has begun to trend down - CT abdomen / pelvis 11/14: No evidence of adenopathy, ascites or mass. Bilateral pleural effusions. There are a few air bubbles in the right pleural effusion. Bibasilar infiltrates. Cardiomegaly. Nonobstructive left renal calculus. Bilateral renal cysts as described. S1 laminectomy. Cholelithiasis wit hout CT evidence of acute cholecystitis, however, ultrasound might be more sensitive. - Nephrology on consultation - s/p IV fluid hydration,, but remained hyperkalemia, hyponatemic with fluid overload and hyperkalemia with no improvement. -not a dialysis candidate. 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 cdiff colitis ID consulted. per RN, little output via recatal tube Acute on chronic Hypoxic Respiratory Failure due to sepsis, neck mass which is inoperable, DNR/DNI CXR : bilateral pleural effusions Hypotonic hypovolemic hyponatremia - Patient appears cachectic - Has been trending up toward normal - s/p iv fluid hydration Hyperkalemia - Has been slowly trending down - No EKG changes - c/w Telemetry monitoring - recurrent Leukocytosis / Sepsis - possibly 2/2 multiple sources; HCAP; UTI; Sacral decubitus Ulcer (Stage 3); C. diff colitis - Patient has complained of generalized weakness and fatigue - On 11/14/2018 patient has become hypothermic - Patient has been experiencing profuse diarrhea - Leukocytosis / CRP has been improving; No lactic acidosis - Blood cultures pending; Sputum culture pending; Wound cultures pending; Urine cultures pending; GI panel 11/14: C. diff A/B - Patient has a rectal tube in place - c/w Zosyn and Vancomycin (Day #2); c/w Vancomycin PO (Day #1) - Will start warmed IV fluids, blankets and bear huggers - Consulted surgery / PT wound care for possible debridement of Sacral decubitus ulcer Bilateral pleural effusions - Patient has had a history of pleural effusions and has had a thoracocentesis performed 07/02/2018 with 1500 cc of fluid removal - Fluid analysis at that time was consistent with exudative etiology and cultures showed ROSEOMONAS GILARDII - Patient has received 7 days of antibiotic therapy - Imaging now was consistent with some bubbles on the right pleural effusion - Case has been discussed with pulmonology; will review the imaging and discuss further options; may require intervention Neck mass - liked 2/2 malignancy - Patient is a severe weight loss - Clinically patient has been bedbound for what he reports is one week, however, given his stage III decubitus ulcer appears to be much longer than that - ENT, Dr. 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 2. Small vessel isc hemic disease. 3. Mild volume loss. - CT chest 11/13: Neck mass on the right as described. Bibasilar infiltrates. Bilateral pleural effusions. Numerous bulla throughout the lung francis bilaterally. Cardiomegaly. - Will consult ENT; discussed with Dr. Vázquez who advised that Dr. Whitmore will return by tomorrow - c/w Pain control [place]astolic [place] [address] - repeat cxr today - Continue supplementary oxygen via nasal cannula at 2L, Oxygen therapy orders to titrate to SpO2 >90% - Echo 03/16/18: Mild , Mild AR, Severe mitral annular calcification, mild MR, no MS, severe LA dilation, mild elevation of pulmonary artery systolic pressure COPD on 2 L of oxygen at baseline; Chronic hypoxic respiratory failure - No evidence of exacerbation - Centrilobular emphysema with Cor Pulmonale - c/w inhaled therapy as ordered IDDM2 - c/w glucose checks AC / HS - Will HOLD ISS and Long acting insulin (re: poor oral intake) CAD - c/w pravastatin and metoprolol Sick-Sinus Syndrome - Patient was noted to have brief nocturnal episodes of high-grade AV block while he was in the hospital 08/17. 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 Vital Signs/I&Os Vital Signs Date Time Temp Pulse Resp B/P (MAP) Pulse Ox O2 Delivery O2 Flow Rate FiO2 11/17/18 09:00 10.0 11/16/18 19:30 18 11/16/18 11:00 106 93/48 (63) 91 11/16/18 08:00 97.7 11/13/18 16:32 Room Air I&O- Last 24 Hours up to 6 AM 11/17/18 06:00 Intake Total 410 ml Output Total 400 ml Balance 10 ml Microbiology Microbiology 11/14/18 Blood Culture - Preliminary, Resulted No Growth after 48 hours. All Specime... 11/14/18 Blood Culture - Preliminary, Resulted No Growth after 48 hours. All Specime... 11/14/18 Gastrointestinal Tract Panel (PCR) - Final, Complete Clostridium Difficile A/B 11/15/18 MRSA Screen - Final, Complete 11/14/18 Urine Culture - Final, Complete 11/13/18 Gram Stain - Final, Complete 11/13/18 Wound Culture - Final, Complete Proteus Mirabilis Escherichia Coli Strep Agalactiae Group B Discharge Medications Scheduled Allopurinol (Zyloprim) 300 Mg Tab, 300 MG PO QHS, (Reported) Amlodipine Besylate (Amlodipine Besylate) 5 Mg Tab, 5 MG PO DAILY, (Reported) Doxazosin Mesylate (Doxazosin) 2 Mg Tab, 2 MG PO QHS, (Reported) Insulin Glargine (Lantus Solostar) 100 Unit/Ml Inj, 25 UNITS SC QHS, (Reported) Metoprolol Tartrate (Metoprolol Tartrate) 25 Mg Tab, 25 MG PO BID, (Reported) Pravastatin Sodium (Pravastatin Sodium) 80 Mg Tab, 80 MG PO QHS, (Reported) Rivaroxaban (Xarelto) 15 Mg Tab, 15 MG PO DAILY, (Reported) Spironolactone (Spironolactone) 25 Mg Tab, 25 MG PO DAILY, (Reported) Torsemide (Torsemide) 100 Mg Tab, 50 MG PO BID, (Reported) Vitamin D (Drisdol) 50,000 Unit Cap, 50,000 UNIT PO QWEEK, (Reported) SUNDAYS Scheduled PRN Acetaminophen (Tylenol Extra Strength) 500 Mg Tab, 1,500 MG PO BID PRN for PAIN / FEVER, (Reported) Allergies Coded Allergies: Quinine (Verified Allergy, Unknown, [facility], 11/04/16) LETICIA BRYANT MD Nov 17, 2018 13:29
[2018-11-18 00:08] LABS: ANA (HEP2) Negative (.)
== END 2018-11-17 10:25 | disposition expired | DRG 871 ==
LOC: M ED 09:10 → M ED INP 13:17 → M PCU 16:40 → M ICU 11-15 10:34 → M MSPAV 11-16 15:10
PROVIDERS: ADMIT Internal Medicine; ATTEND General Practice
DX: A41.9 Sepsis, unspecified organism (principal); L89.153 Pressure ulcer of sacral region, stage 3; J96.21 Acute and chronic respiratory failure with hypoxia; N17.9 Acute kidney failure, unspecified; I50.32 Chronic diastolic (congestive) heart failure; I13.0 Hypertensive heart and chronic kidney disease with heart failure and stage 1 through stage 4 chronic kidney disease, or unspecified chronic kidney disease; E87.1 Hypo-osmolality and hyponatremia; N18.4 Chronic kidney disease, stage 4 (severe); A04.72 Enterocolitis due to Clostridium difficile, not specified as recurrent; E87.2 Acidosis; J90 Pleural effusion, not elsewhere classified; Z66 Do not resuscitate; Z51.5 Encounter for palliative care; F32.9 Major depressive disorder, single episode, unspecified; I25.10 Atherosclerotic heart disease of native coronary artery without angina pectoris; I48.2 Chronic atrial fibrillation; E11.22 Type 2 diabetes mellitus with diabetic chronic kidney disease; M10.30 Gout due to renal impairment, unspecified site; E78.5 Hyperlipidemia, unspecified; R65.20 Severe sepsis without septic shock; I49.5 Sick sinus syndrome; E87.5 Hyperkalemia; C73 Malignant neoplasm of thyroid gland; E83.41 Hypermagnesemia; I87.2 Venous insufficiency (chronic) (peripheral); R33.9 Retention of urine, unspecified; J44.9 Chronic obstructive pulmonary disease, unspecified; E11.21 Type 2 diabetes mellitus with diabetic nephropathy; E53.8 Deficiency of other specified B group vitamins; Z90.49 Acquired absence of other specified parts of digestive tract; Z87.891 Personal history of nicotine dependence; Z99.81 Dependence on supplemental oxygen; Z79.01 Long term (current) use of anticoagulants; Z79.4 Long term (current) use of insulin; Z79.899 Other long term (current) drug therapy; Z88.8 Allergy status to other drugs, medicaments and biological substances; Z87.442 Personal history of urinary calculi